=== PATIENT | male | born 1930 | race Caucasian/White ===

== ENCOUNTER 2018-02-25 10:03 | Emergency (ER) | payer MEDICARE, BC ==
--- NOTE | 2018-02-25 10:24 | ED ---
Hypertension - History of Current Complaint Chief Complaint: EDHypertension Stated Complaint: HIGH BP,LEG SWELLING - Allergies/Home Medications Allergies/Adverse Reactions: Allergies Allergy/AdvReac Type Severity Reaction Status Date / Time codeine Allergy Hives/Diff. Verified 02/25/18 10:12 Breathing/I tching PMH/Surg Hx/FS Hx/Imm Hx Previously Healthy: No Endocrine/Hematology History: Denies: Hx Anticoagulant Therapy, Hx Diabetes, Hx Thyroid Disease Cardiovascular History: Reports: Hx Coronary Artery Disease, Hx Hypercholesterolemia, Hx Hypertension, Hx Pacemaker/ICD - 2012, Other Cardiovascular Problems/Disorders - CARDIAC STENT Denies: Hx Angina, Hx Cardiac Arrest, Hx Congestive Heart Failure Respiratory History: Reports: Hx Sleep Apnea Denies: Other Respiratory Problems/Disorders GI History: Reports: Hx Gastroesophageal Reflux Disease Denies: Other GI Disorders History: Reports: Hx Benign Prostatic Hyperplasia Denies: Hx Renal Disease Musculoskeletal History: Reports: 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 RIGHT CATARACT, [place], [place], 2008. HERNIA X 2 1997, [place]. TONSILECTOMY 193, [facility] Anesthesia Reactions: No - Immunization History Date of Tetanus Vaccine: Unk Date of Influenza Vaccine: Fall 2014 Infectious Disease History: No Infectious Disease History: Denies: Traveled Outside the in Last 30 Days - Social History Alcohol Use: Rare Substance Use Type: Reports: None Smoking Status (MU): Never Smoked Tobacco Review of Systems Negative: Fever, Chills Negative: Erythema Negative: Sore Throat Negative: Chest Pain Negative: Shortness Of Breath, Cough Negative: Abdominal Pain, Vomiting, Nausea Negative: dysuria, hematuria Negative: Myalgia, Edema Negative: Rash Neurological: Other - No dizziness All Other Systems Reviewed And Are Negative: Yes Physical Exam - Summary Physical Exam Summary: Constitutional: Well-developed, Well-nourished, Alert. (-) Distressed Skin: Warm, Dry HENT: Normocephalic; Atraumatic Eyes: Conjunctiva normal Neck: Musculoskeletal ROM normal neck. (-) JVD, (-) Stridor, (-) Tracheal deviation Cardio: Rhythm regular, rate normal, Heart sounds normal; Intact distal pulses; The pedal pulses are 2+ and symmetric. Radial pulses are 2+ and symmetric. (-) Murmur Pulmonary/Chest wall: Effort normal. (-) Respiratory distress, (-) Wheezes, (-) Rales Abd: Soft, (-), epigastric tenderness, (-) Distension, (-) Guarding, (-) Rebound Musculoskeletal: (-) Edema Lymph: (-) Cervical adenopathy Neuro: Alert, Oriented x3 Psych: Mood and affect Normal Triage Information Reviewed: Yes Vital Signs On Initial Exam: Initial Vitals Temp Pulse Resp BP Pulse Ox 97.5 F 67 18 152/94 97 02/25/18 10:07 02/25/18 10:07 02/25/18 10:07 02/25/18 10:07 02/25/18 10:07 Vital Signs Reviewed: Yes Diagnostics - Vital Signs Vital Signs Temp Pulse Resp BP Pulse Ox 02/25/18 10:07 97.5 F 67 18 152/94 97 - Laboratory Lab Statement: Any lab studies that have been ordered have been reviewed, and results considered in the medical decision making process. Discharge - Discharge Plan Referrals: Abner Romero MD [Primary Care Provider] -
--- NOTE | 2018-02-25 10:59 | ED ---
Lower Extremity - HPI Summary HPI Summary: 87 y/o male presents to the ED c/o bilateral feet pain for 3 days now. Associated sx: redness and swelling in both feet. Sx not alleviated by anything. Pt has trouble walking due to weakness. Gained 10 lbs in last week, lost 4 lbs last night. PMHx AFIB. Denies CP. Reported recent BP in 130s-140s, occasionally 150s; HR 70's and high 60's - History of Current Complaint Chief Complaint: EDHypertension Stated Complaint: HIGH BP,LEG SWELLING Hx Obtained From: Patient Onset of Pain: Days Onset/Duration: Still Present Pain Intensity: 5 Timing: Constant Location: Is Discrete @ - bilateral feet Associated Signs And Symptoms: Positive: Swelling, Redness Alleviating Factor(s): Nothing - Allergies/Home Medications Allergies/Adverse Reactions: Allergies Allergy/AdvReac Type Severity Reaction Status Date / Time codeine Allergy Hives/Diff. Verified 02/25/18 10:12 Breathing/I tching Home Medications: Home Medications Aspirin EC TAB* [Ecotrin EC Low Dose 81 MG*] 81 mg PO QAM 02/25/18 [History Confirmed 02/25/18] Atorvastatin* [Lipitor 10 MG*] 5 mg PO EVERY OTHER DAY 02/25/18 [History Confirmed 02/25/18] Atorvastatin* [Lipitor 10 MG*] 10 mg PO EVERY OTHER DAY 02/25/18 [History Confirmed 02/25/18] Bilberry Fruit Extract [Bilberry Extract] 150 mg PO QAM 02/25/18 [History Confirmed 02/25/18] Cyanocobalamin TAB* [Vitamin B12 TAB*] 1,000 mcg PO DAILY 02/25/18 [History Confirmed 02/25/18] Dabigatran CAP(NF) [Pradaxa CAP(NF)] 150 mg PO BID 02/25/18 [History Confirmed 02/25/18] Digoxin TAB* [Lanoxin TAB*] 0.125 mg PO BID 02/25/18 [History Confirmed 02/25/18 ] Digoxin TAB* [Lanoxin TAB*] 0.125 mg PO DAILY 02/25/18 [History Confirmed ] Docusate CAP* [Colace Cap*] 100 mg PO QAM 02/25/18 [History Confirmed 02/25/18] Dorzolamide HCl/Timolol Maleat [Cosopt Eye Drops] 1 drop RIGHT EYE BID 02/25/18 [History Confirmed 02/25/18] Meclizine TAB* [Antivert 12.5 TAB*] 12.5 - 25 mg PO TID PRN 02/25/18 [History Confirmed 02/25/18] Pantoprazole TAB (NF) [Protonix TAB (NF)] 40 mg PO QAM 02/25/18 [History Confirmed 02/25/18] Tamsulosin CAP* [Flomax CAP*] 0.4 mg PO QAM 02/25/18 [History Confirmed 02/25/18 ] Vit A/Vit C/Vit E/Zinc/Copper [Preservision Areds Softgel] 1 each PO BID [History Confirmed 02/25/18] dilTIAZem HCl [Cartia Xt] 120 mg PO BID 02/25/18 [History Confirmed 02/25/18] PMH/Surg Hx/FS Hx/Imm Hx Previously Healthy: No Endocrine/Hematology History: Denies: Hx Anticoagulant Therapy, Hx Diabetes, Hx Thyroid Disease Cardiovascular History: Reports: Hx Coronary Artery Disease, Hx Hypercholesterolemia, Hx Hypertension, Hx Pacemaker/ICD - 2012, Other Cardiovascular Problems/Disorders - CARDIAC STENT Denies: Hx Angina, Hx Cardiac Arrest, Hx Congestive Heart Failure Respiratory History: Reports: Hx Sleep Apnea Denies: Other Respiratory Problems/Disorders GI History: Reports: Hx Gastroesophageal Reflux Disease Denies: Other GI Disorders History: Reports: Hx Benign Prostatic Hyperplasia Denies: Hx Renal Disease Musculoskeletal History: Reports: 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 [place]ACT, [place], [place], 2008. HERNIA X 2 1997, [facility] [place]. TONSILECTOMY 1935, [facility] Hx Anesthesia Reactions: No - Immunization History Date of Tetanus Vaccine: Unk Date of Influenza Vaccine: Fall 2014 Infectious Disease History: No Infectious Disease History: Denies: Traveled Outside the [place] in Last 30 Days - Social History Alcohol Use: None Substance Use Type: Reports: None Smoking Status (MU): Never Smoked Tobacco Review of Systems Negative: Fever, Chills Negative: Erythema Negative: Sore Throat Negative: Chest Pain Negative: Shortness Of Breath, Cough Negative: Abdominal Pain, Vomiting, Nausea Negative: dysuria, hematuria Positive: Edema, Other - bilateral feet pain. Negative: Myalgia Positive: Other - redness @ both legs. Negative: Rash Neurological: Other - No dizziness All Other Systems Reviewed And Are Negative: Yes Physical Exam - Summary Physical Exam Summary: Constitutional: Well-developed, Well-nourished, Alert. (-) Distressed Skin: Warm, Dry HENT: Normocephalic; Atraumatic Eyes: Conjunctiva normal Neck: Musculoskeletal ROM normal neck. (-) JVD, (-) Stridor, (-) Tracheal deviation Cardio: Irregular pulse. Heart sounds normal; Intact distal pulses; The pedal pulses are 2+ and symmetric. Radial pulses are 2+ and symmetric. (-) Murmur. Pulmonary/Chest wall: Effort normal. (-) Respiratory distress, (-) Wheezes, (-) Rales. Crackles at left lower lung field. Abd: Soft, (-), epigastric tenderness, (-) Distension, (-) Guarding, (-) Rebound Musculoskeletal: 1+ pitting edema @ both LE up to knee. Lymph: (-) Cervical adenopathy Neuro: Alert, Oriented x3 Psych: Mood and affect Normal Triage Information Reviewed: Yes Vital Signs On Initial Exam: Initial Vitals Temp Pulse Resp BP Pulse Ox 97.5 F 67 18 152/94 97 02/25/18 10:07 02/25/18 10:07 02/25/18 10:07 02/25/18 10:07 02/25/18 10:07 Vital Signs Reviewed: Yes Diagnostics - Vital Signs Vital Signs Temp Pulse Resp BP Pulse Ox 02/25/18 10:07 97.5 F 67 18 152/94 97 - Laboratory Result Diagrams: 02/25/18 11:12 02/25/18 11:12 Lab Statement: Any lab studies that have been ordered have been reviewed, and results considered in the medical decision making process. - Radiology CXR Xray Interpretation: Positive (See Comments) - 1. PATCHY CONSOLIDATION OF THE RIGHT MIDDLE LOBE WITH SMALL RIGHT PLEURAL EFFUSION. RECOMMEND FOLLOW-UP UNTIL RESOLUTION TO EXCLUDE UNDERLYING PULMONARY PARENCHYMAL PATHOLOGY. 2. COPD. 3. CARDIOMEGALY WITH A TORTUOUS AORTA Radiology Interpretation Completed By: Radiologist - EKG 1 EKG Interpretation: 11:05 - Paced @ 70 bpm. Lower Extremity Course/Dx - Course Assessment/Plan: No sign of pulmonary edema. XR showed infiltrated that we will treat. Difficulty ambulating not related to SOB but with leg pain and heaviness. - Diagnoses Provider Diagnoses: Peripheral edema, Lung infiltrate Discharge - Discharge Plan Condition: Stable Disposition: HOME Prescriptions: Furosemide TAB* [Lasix TAB*] 20 mg PO DAILY PRN #14 tab PRN Reason: Per Protocol Patient Education Materials: Leg Edema (ED), FAREED [place] ([place]) Referrals: Abner Romero MD [Primary Care Provider] - 2 Days (PLEASE F/U IN 1-2 DAYS) Additional Instructions: F/U WITH [facility] AND/OR [facility]CP IN 1-2 DAYS. CALL FOR AN APPOINTMENT RECOMMEND KNEE HIGH COMPRESSION STOCKINGS RETURN TO ED FOR RETURNING OR WORSENING SYMPTOMS
[2018-02-25] MEDS ORDERED: Furosemide IV* 10 MG/ML VIAL (40 MG) IV SLOW PU ONE (11:02)
[2018-02-25 11:23] LABS: Hematocrit 40 % (42-52); Hemoglobin 13.3 g/dl (14.0-18.0); Mean Corpuscular HGB Conc 34 g/dl (31-36); Mean Corpuscular Hemoglobin 34 pg (27-31); Mean Corpuscular Volume 101 fL (80-94); Mean Platelet Volume 8.2 um3 (7.4-10.4); Platelet Count 132 10^3/ul (150-450); Red Blood Count 3.92 10^6/ul (4.00-5.40); Red Cell Distribution Width 13 % (10.5-15); White Blood Count 6.4 10^3/ul (3.5-10.8)
[2018-02-25 11:40] LABS: EGFR Non-African American 71.7 (>60)
--- NOTE | 2018-02-25 12:01 | RAD ---
HISTORY: EDEMA, L[facility] CRACKLE COMPARISONS: August 19, 2015 VIEWS: 4: Frontal dual-energy and lateral views of the chest. FINDINGS: CARDIOMEDIASTINAL SILHOUETTE: The aorta is tortuous. A prosthetic heart valve is noted. The cardiac silhouette is mildly enlarged. The cardiomediastinal silhouette is stable from previous examinations.. ABNER: The abner are normal. PLEURA: There is a small right pleural effusion. LUNG PARENCHYMA: There is hyperinflation with flattening of the diaphragm and expansion of the AP diameter of the chest. There is patchy alveolar opacification of the right lung base localizing to the right middle lobe. ABDOMEN: The upper abdomen is clear. There is no subphrenic gas. BONES AND SOFT TISSUES: The patient is status post median sternotomy. OTHER: A left-sided pacemaker is noted. IMPRESSION: 1. PATCHY CONSOLIDATION OF THE RIGHT MIDDLE LOBE WITH SMALL RIGHT PLEURAL EFFUSION. RECOMMEND FOLLOW-UP UNTIL RESOLUTION TO EXCLUDE UNDERLYING PULMONARY PARENCHYMAL PATHOLOGY. 2. COPD. 3. CARDIOMEGALY WITH A TORTUOUS AORTA
[2018-02-25] MEDS ORDERED: Azithromycin TAB* 250 MG PO ONE (13:14)
[2018-02-25 13:48] VITALS: BP 130/100
== END 2018-02-25 13:54 | disposition home or self-care (01) ==
LOC: ED 10:03
DX: R60.0 Localized edema (principal); R91.8 Other nonspecific abnormal finding of lung field; I48.91 Unspecified atrial fibrillation; I25.10 Atherosclerotic heart disease of native coronary artery without angina pectoris; I10 Essential (primary) hypertension; Z95.5 Presence of coronary angioplasty implant and graft; Z79.899 Other long term (current) drug therapy; Z79.01 Long term (current) use of anticoagulants; Z88.5 Allergy status to narcotic agent
CPT/HCPCS: 36415; 71046; 80053; 80061; 80162; 82550; 83880; 85027; 93005; 96374; 99283; A9270-GY; J1940

== ENCOUNTER → 2019-02-11 17:45 | Emergency (ER) | payer MEDICARE, BC ==
[2019-02-11 19:17] LABS: ABS Eosinophils 0.6 10^3/ul (0-0.6); ABS Lymphocytes 2.1 10^3/ul (1.0-4.8); ABS Neutrophils 3.8 10^3/ul (1.5-7.7); Eosinophil % 7.6 %; Hematocrit 39 % (42-52); Hemoglobin 13.3 g/dL (14.0-18.0); Lymphocyte % 28.3 %; Mean Corpuscular HGB Conc 34 g/dL (31-36); Mean Corpuscular Hemoglobin 34 pg (27-31); Mean Corpuscular Volume 102 fL (80-94); Mean Platelet Volume 8.6 fL (7.4-10.4); Nucleated Red Blood Cells % 0.1; Platelet Count 126 10^3/uL (150-450); Red Blood Count 3.87 10^6 /uL (4.18-5.48); Red Cell Distribution Width 14 % (10-15); White Blood Count 7.4 10^3/uL (3.5-10.8)
[2019-02-11 19:21] LABS: INR 1.4 (0.82-1.09)
[2019-02-11 19:32] LABS: Albumin 3.7 g/dL (3.2-5.2); Albumin/Globulin Ratio 1.5 (1-3); BUN/Creatinine Ratio 27.3 (8-20); C Reactive Protein 9.6 mg/L (<8.01); EGFR African American 64.3 (>60); EGFR Non-African American 53.2 (>60); Globulin 2.5 g/dL (2-4); Potassium 4.2 mmol/L (3.5-5.0); Total Bilirubin 0.6 mg/dL (0.2-1.0); Total Protein 6.2 g/dL (6.4-8.9)
[2019-02-11 19:33] LABS: Troponin I 0.02 ng/mL (<0.04)
--- NOTE | 2019-02-11 19:43 | ED ---
Adult Trauma - HPI Summary HPI Summary: This pt is an 88 y/o male presenting to [facility] via EMS c/o right hip pain s/p fall today. Pt reports he went outside to get fresh air and sat down on a chair. He notes his chair went backwards and he fell backwards striking the back of his head. No LOC. Son, who lives right next door, states he saw the pt on the ground and was probably there for about 30 minutes. Son was unable to get the pt to stand up. Denies chest pain, SOB, abd pain. At baseline pt ambulates with a cane but slow. Pt is on anticoagulants. 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 - History of Current Complaint Chief Complaint: EDFall Stated Complaint: FALL PER EMS Time Seen by Provider: 02/11/19 19:30 Hx Obtained From: Patient, Family/Property Assessment Monitor - Son Mechanism of Injury: Fall Ambulatory at the Scene: No Loss of Consciousness: no loss of consciousness Onset/Duration: Started Hours Ago, Still Present Onset of Pain: Hours Current Severity: Moderate Pain Intensity: 4 Pain Scale Used: 0-10 Numeric Location: Other - Right hip Aggravating Factor(s): Ambulation Alleviating Factor(s): Rest Associated Signs & Symptoms: Negative: SOB, Chest Pain, Abdominal Pain, Fever, Loss of Consciousness - Additional Pertinent History Primary Care Physician: [id number] - Allergy/Home Medications Allergies/Adverse Reactions: Allergies Allergy/AdvReac Type Severity Reaction Status Date / Time codeine Allergy Hives/Diff. Verified 02/25/18 10:12 Breathing/I tching PMH/Surg Hx/FS Hx/Imm Hx Endocrine/Hematology History: Denies: Hx Anticoagulant Therapy, Hx Diabetes, Hx Thyroid Disease Cardiovascular History: Reports: Hx Coronary Artery Disease, Hx Hypercholesterolemia, Hx Hypertension, Hx Pacemaker/ICD - 2012, Other Cardiovascular Problems/Disorders - CARDIAC STENT Denies: Hx Angina, Hx Cardiac Arrest, Hx Congestive Heart Failure Respiratory History: Reports: Hx Chronic Obstructive Pulmonary Disease (COPD), Hx Sleep Apnea Denies: Other Respiratory Problems/Disorders GI History: Reports: Hx Gastroesophageal Reflux Disease Denies: Other GI Disorders History: Reports: Hx Benign Prostatic Hyperplasia Denies: Hx Renal Disease Musculoskeletal History: Reports: 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 RIGHT CATARACT, [place], [place], 2008. HERNIA X 2 1997, [facility] [place]. TONSILECTOMY 193, [place] Hx Anesthesia Reactions: No - Immunization History Date of Tetanus Vaccine: Unk Date of Influenza Vaccine: Fall 2014 Infectious Disease History: No Infectious Disease History: Denies: Traveled Outside the [place] in Last 30 Days - Family History Family History: Mother with glaucoma. Father with lung CA secondary to smoking - Social History Alcohol Use: None Substance Use Type: Reports: None Smoking Status (MU): Never Smoked Tobacco Review of Systems Negative: Fever Negative: Chest Pain Negative: Shortness Of Breath Negative: Abdominal Pain Musculoskeletal: Other - POSITIVE: right hip pain Neurological: Other - NEGATIVE: LOC All Other Systems Reviewed And Are Negative: Yes Physical Exam - Summary Physical Exam Summary: VITAL SIGNS: Reviewed. GENERAL: Patient is a well-developed and nourished male who is lying comfortable in the stretcher. Patient is not in any acute respiratory distress. HEAD AND FACE: No signs of trauma. No ecchymosis, hematomas or skull depressions. No sinus tenderness. EYES: PERRLA, EOMI x 1, No injected conjunctiva, no nystagmus. Patient is blind in the left eye, left eye is opaque in exam. EARS: Hearing grossly intact. Ear canals and tympanic membranes are within normal limits. MOUTH: Oropharynx within normal limits. NECK: Supple, trachea is midline, no adenopathy, no JVD, no carotid bruit, no c- spine tenderness, neck with full ROM. CHEST: Symmetric, no tenderness at palpation LUNGS: Clear to auscultation bilaterally. No wheezing or crackles. CVS: Regular rate and rhythm, S1 and S2 present, no murmurs or gallops appreciated. ABDOMEN: Soft, non-tender. No signs of distention. No rebound no guarding, and no masses palpated. Bowel sounds are normal. EXTREMITIES: Pain in the right hip with movement. NEURO: Alert and oriented x 3. No acute neurological deficits. Speech is normal and follows commands. SKIN: Dry and warm GCS: 15 Triage Information Reviewed: Yes Vital Signs On Initial Exam: Initial Vitals Temp Pulse Resp BP Pulse Ox 99.4 F 79 18 141/83 94 02/11/19 18:19 02/11/19 18:19 02/11/19 18:19 02/11/19 18:19 02/11/19 18:19 Vital Signs Reviewed: Yes Diagnostics - Vital Signs Vital Signs Temp Pulse Resp BP Pulse Ox 02/11/19 18:19 99.4 F 79 18 141/83 94 - Laboratory Lab Results: Lab Results 02/11/19 02/11/19 02/11/19 Range/Units 19:07 19:07 19:07 WBC 7.4 (3.5-10.8) 10^3/uL RBC 3.87 L (4.18-5.48) 10^6 /uL Hgb 13.3 L (14.0-18.0) g/dL Hct 39 L (42-52) % MCV 102 H (80-94) fL MCH 34 H (27-31) pg MCHC 34 (31-36) g/dL RDW 14 (10-15) % Plt Count 126 L (150-450) 10^3/uL MPV 8.6 (7.4-10.4) fL Neut % (Auto) 50.6 % Lymph % (Auto) 28.3 % Will % (Auto) 13.0 % Eos % (Auto) 7.6 % Baso % (Auto) 0.5 % Absolute Neuts (auto) 3.8 (1.5-7.7) 10^3/ul Absolute Lymphs (auto) 2.1 (1.0-4.8) 10^3/ul Absolute Monos (auto) 1.0 H (0-0.8) 10^3/ul Absolute Eos (auto) 0.6 (0-0.6) 10^3/ul Absolute Basos (auto) 0.0 (0-0.2) 10^3/ul Absolute Nucleated RBC 0.0 10^3/ul Nucleated RBC % 0.1 INR (Anticoag Therapy) 1.40 H (0.82-1.09) Sodium (135-145) mmol/L Potassium (3.5-5.0) mmol/L Chloride (101-111) mmol/L Carbon Dioxide (22-32) mmol/L Anion Gap (2-11) mmol/L BUN (6-24) mg/dL Creatinine (0.67-1.17) mg/dL Est GFR ( Amer) (>60) Est GFR (Non-Af Amer) (>60) BUN/Creatinine Ratio (8-20) Glucose (70-100) mg/dL Lactic Acid 0.6 (0.5-2.0) mmol/L Calcium (8.6-10.3) mg/dL Total Bilirubin (0.2-1.0) mg/dL AST (13-39) U/L ALT (7-52) U/L Alkaline Phosphatase (34-104) U/L Troponin I (<0.04) ng/mL C-Reactive Protein (<8.01) mg/L Total Protein (6.4-8.9) g/dL Albumin (3.2-5.2) g/dL Globulin (2-4) g/dL Albumin/Globulin Ratio (1-3) 02/11/ Range/Units 19:07 WBC (3.5-10.8) 10^3/uL RBC (4.18-5.48) 10^6 /uL Hgb (14.0-18.0) g/dL Hct (42-52) % MCV (80-94) fL MCH (27-31) pg MCHC (31-36) g/dL RDW (10-15) % Plt Count (150-450) 10^3/uL MPV (7.4-10.4) fL Neut % (Auto) % Lymph % (Auto) % Will % (Auto) % Eos % (Auto) % Baso % (Auto) % Absolute Neuts (auto) (1.5-7.7) 10^3/ul Absolute Lymphs (auto) (1.0-4.8) 10^3/ul Absolute Monos (auto) (0-0.8) 10^3/ul Absolute Eos (auto) (0-0.6) 10^3/ul Absolute Basos (auto) (0-0.2) 10^3/ul Absolute Nucleated RBC 10^3/ul Nucleated RBC % INR (Anticoag Therapy) (0.82-1.09) Sodium 140 (135-145) mmol/L Potassium 4.2 (3.5-5.0) mmol/L Chloride 108 (101-111) mmol/L Carbon Dioxide 29 (22-32) mmol/L Anion Gap 3 (2-11) mmol/L BUN 35 H (6-24) mg/dL Creatinine 1.28 H (0.67-1.17) mg/dL Est GFR ( Amer) 64.3 (>60) Est GFR (Non-Af Amer) 53.2 (>60) BUN/Creatinine Ratio 27.3 H (8-20) Glucose 106 H (70-100) mg/dL Lactic Acid (0.5-2.0) mmol/L Calcium 9.0 (8.6-10.3) mg/dL Total Bilirubin 0.60 (0.2-1.0) mg/dL AST 17 (13-39) U/L ALT 18 (7-52) U/L Alkaline Phosphatase 55 (34-104) U/L Troponin I 0.02 (<0.04) ng/mL C-Reactive Protein 9.60 H (<8.01) mg/L Total Protein 6.2 L (6.4-8.9) g/dL Albumin 3.7 (3.2-5.2) g/dL Globulin 2.5 (2-4) g/dL Albumin/Globulin Ratio 1.5 (1-3) Result Diagrams: 02/11/19 19:07 02/11/19 19:07 Lab Statement: Any lab studies that have been ordered have been reviewed, and results considered in the medical decision making process. - Radiology Chest XR Radiology Interpretation Completed By: ED Physician Summary of Radiographic Findings: Hyperinflation, COPD, no acute process. Pending official radiology report. Right hip XR Radiology Interpretation Completed By: ED Physician Summary of Radiographic Findings: Severe arthritis of the right hip joint. No definite fracture seen. Pending official radiology report. - CT Brain CT CT Interpretation Completed By: Radiologist Summary of CT Findings: IMPRESSION: No acute intracranial hemorrhage. No mass or obstructive hydrocephalus. Dr. Fatima has reviewed this report. Cervical spine CT CT Interpretation Completed By: Radiologist Summary of CT Findings: IMPRESSION: 1. No acute fracture involving the cervical vertebral bodies or posterior elements. 2. Slight anterolisthesis of C3 onto C4 and C4 onto C5 secondary to degenerative changes of the facet joints and discs bases. 3. 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 No significant central canal stenosis. Variable degrees of neural foraminal narrowing secondary to degenerative changes of the uncovertebral joints and facet joints. 4. Dermal inclusion cyst in the posterior aspect of the right shoulder. Dr. Fatima has reviewed this report. Pelvis CT CT Interpretation Completed By: Radiologist Summary of CT Findings: IMPRESSION: 1. No evidence of a fracture involving the hips. Osteoarthritis changes of the hips. The appearance of the pelvis is intact. 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 2. 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 Maximum AP length is 3.6 cm. Workup and followup per institutional guidelines. Consider ultrasound examination of the abdominal aorta. Dr. Ftaima has reviewed this report. Adult Trauma Course/Dx - Course Assessment/Plan: Pt is an 88 y/o male presenting to [facility] via EMS c/o right hip pain s/p fall today. Pt reports he went outside to get fresh air and sat down on a chair. He notes his chair went backwards and he fell backwards striking the back of his head. No LOC. Pt is on anticoagulants. Lab work was obtained. Right hip XR shows severe arthritis of the right hip joint. No definite fracture seen. Brain CT is negative. Cervical spine CT shows 1. No acute fracture involving the cervical vertebral bodies or posterior elements. 2. Slight anterolisthesis of C3 onto C4 and C4 onto C5 secondary to degenerative changes of the facet joints and discs bases. 3. 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 No significant central canal stenosis. Variable degrees of neural foraminal narrowing secondary to degenerative changes of the uncovertebral joints and facet joints. 4. Dermal inclusion cyst in the posterior aspect of the right shoulder. Pelvis CT shows 1. No evidence of a fracture involving the hips. Osteoarthritis changes of the hips. The appearance of the pelvis is intact. 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 2. 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 Maximum AP length is 3.6 cm. Workup and followup per institutional guidelines. Consider ultrasound examination of the abdominal aorta. Pt will be discharged home with follow up from her PCP. He was given a prescription for Tramadol. Instructions to return to the ED were given to the pt. - Diagnoses Provider Diagnoses: Arthritis of right hip, Fall Discharge - Sign-Out/Discharge Documenting (check all that apply): Patient Departure - Discharged home Patient Received Moderate/Deep Sedation with Procedure: No - Discharge Plan Condition: Stable Disposition: HOME Prescriptions: Tramadol HCl [Ultram] 50 mg PO Q6HR PRN #20 tablet MDD 4 PRN Reason: Pain Patient Education Materials: Fall Prevention for Older Adults (ED), Arthritis ( ED) Referrals: Abner Romero MD [Primary Care Provider] - Additional Instructions: Please follow up with your primary care provider in 1-2 days. RETURN TO EMERGENCY DEPARTMENT FOR ANY NEW OR WORSENING SYMPTOMS. - Attestation Statements Document Initiated by Scribe: Yes Documenting Scribe: Laura Franklin Provider For Whom Markosibmaycol is Documenting (Include Credential): Smooth Fatima MD Scribe Attestation: Laura Beltran, scribed for Smooth Fatima MD on 02/11/19 at 2308. Status of Scribe Document: Ready
[2019-02-11 22:34] VITALS: BP 156/109
== END | disposition home or self-care (01) ==
LOC: ED 17:45
DX: M16.11 Unilateral primary osteoarthritis, right hip (principal); W07.XXXA Fall from chair, initial encounter; I25.10 Atherosclerotic heart disease of native coronary artery without angina pectoris; I10 Essential (primary) hypertension; J44.9 Chronic obstructive pulmonary disease, unspecified
CPT/HCPCS: 36415; 70450; 71046; 72125; 72192; 80053; 83605; 84484; 85025; 85610; 86140; 93005; 99283

== ENCOUNTER 2019-05-15 23:38 | Inpatient (IN) | payer MEDICARE, BC ==
--- OUTSIDE RECORDS SUMMARY | 2019-05-16 00:10 | XMS REPORT | Continuity of Care Document ---
:1930 External Reference #:[id number] Author Name Rafy Freeman Care Team Providers Name Role Phone Abner Romero M.D. - Family Medicine Care Team Information Acid Retort Operator [phone] Enzo Victoria MD - Care Team Information Acid Retort Operator [phone] Otolaryngology Problems Active Problems Provider Date Paroxysmal supraventricular tachycardia Rigo Burrell M.D. Onset: 12/28 Coronary arteriosclerosis Rigo Burrell M.D. Onset: 12/29/2011 Aortic valve disorder Rigo Burrell M.D. Onset: 12/29/2011 Sinus node dysfunction Rigo Burrell M.D. Onset: 12/29/2011 Benign essential hypertension Melissa Walters N.P. Onset: 03/01/2012 Dizziness and giddiness Rigo Burrell M.D. Onset: 06/04/2012 Atrial fibrillation Rigo Burrell M.D. Onset: 12/06/2012 Rheumatic aortic stenosis TAYLOR Vasquez Onset: 11/09/2013 Social History Type Date Description Comments Sex Unknown Tobacco Use Start: Unknown Never Smoked Cigarettes ETOH Use Denies alcohol use Tobacco Use Start: Unknown Patient has never smoked Recreational Drug Use Denies Drug Use Tobacco Use Start: Unknown Secondhand smoke exposure As a child Smoking Status Reviewed: 01/11/19 Secondhand smoke exposure As a child Exercise Type/Frequency Does not exercise Allergies, Adverse Reactions, Alerts Active Allergies Reaction Severity Comments Date Codeine 03/11/2005 Medications Active Medications SIG Qnty Indications Ordering Date Provider Torsemide 1 by mouth 2 30tabs R60.9 Shayna Lloyd, 03/09/2018 10mg days/week N.P. Tablets Lipitor 1/2 alt with 1 tab 90tabs Shayna Lloyd, 09/01/2017 10mg Tablets by mouth every N.P. other day Diltiazem CD 1 by mouth twice 180caps Shayna Lloyd, 11/05/2016 120mg daily N.P. Caps ER 24HR Pradaxa take one capsule 180caps I48.0 Rigo Mathews 11/02/2015 150mg by mouth twice a Denita Burrell Capsules day Amoxicillin take 4 tabs 1 hour 4tabs Rigo Mathews 08/29/2015 500mg prior to dental Denita Burrell Tablets procedure/appointm ent. Digoxin m-w-f 1 tab twice 110tabs Rigo Mathews 03/07/2014 125mcg a day Denita Burrell Tablets tu//sat/sun 1 tab daily Preservision 1 po twice daily 100tabs Rigo Mathews 09/29/2005 Tablets -eye vitamin and Denita Burrell mineral supplement Flovent Diskus 2 puffs inhaled Unknown daily 250mcg/Blist Aerosol Meclizine HCL 1 by mouth three Unknown 12.5mg times a day as Tablets needed Cosopt 1 drop in right Unknown 22.3-6.8mg/ml eye twice daily Solution Bilberry 1 capsule po daily Unknown Capsules Ventolin HFA 2 puffs every Unknown 4hours prn Tylenol Extra as needed Unknown Strength Aspirin Adult Low 1 tablet daily Unknown Dose 81mg Pantoprazole Sodium 1 po qd 100tabs Unknown 40mg Tablets DR Vitamin B-12 1 po qd 90tabs Unknown 1000mcg Tablets Flomax 1 po qd Other Ordering 0.4mg Capsules Provider Immunizations Description No Information Available Vital Signs Date Vital Result Comment 01/11/2019 11:17am Height 71 inches 5'11" Weight 214.00 lb with shoes Heart Rate 74 /min BP Systolic Sitting 124 mmHg lue reg cuff BP Diastolic Sitting 80 mmHg lue reg cuff BP Systolic Standing 128 mmHg lue reg cuff BP Diastolic Standing 80 mmHg lue reg cuff Respiratory Rate 18 /min BMI (Body Mass Index) 29.8 kg/m2 Ejection Fraction 60-65% echo. 05/03/18 11/10/2018 2:17pm Height 71 inches 5'11" Weight 216.38 lb Heart Rate 78 /min BP Systolic Sitting 124 mmHg Lue large cuff BP Diastolic Sitting 84 mmHg Lue large cuff Respiratory Rate 24 /min O2 % BldC Oximetry 96 % On Ra BMI (Body Mass Index) 30.2 kg/m2 Neck Circumference in inches 17.25 Results Test Date Facility Test Result H/L Range Note Comp Metabolic 10/21/2018 [facility] Sodium 143 mmol/L Normal 135-145 [address] [place] [address] [phone] Potassium 4.8 mmol/L Normal 3.5-5.0 Chloride 109 mmol/L Normal 101-111 Co2 Carbon Dioxide 31 mmol/L Normal 22-32 Anion Gap 3 mmol/L Normal 2-11 Glucose 89 mg/dL Normal 70-100 Blood Urea Nitrogen 27 mg/dL High 6-24 Creatinine 1.07 mg/dL Normal 0.67-1.17 BUN/Creatinine Ratio 25.2 High 8-20 Calcium 8.7 mg/dL Normal 8.6-10.3 Total Protein 6.3 g/dL Low 6.4-8.9 Albumin 4.1 g/dL Normal 3.2-5.2 Globulin 2.2 g/dL Normal 2-4 Albumin/Globulin Ratio 1.9 Normal 1-3 Total Bilirubin 0.60 mg/dL Normal 0.2-1.0 Alkaline Phosphatase 63 U/L Normal 34-104 Alt 19 U/L Normal 7-52 Ast 19 U/L Normal 13-39 Egfr Non- 65.4 >60 Egfr 79.1 >60 1 Lipid Profile 10/21/2018 [facility] Triglycerides 50 mg/dL 2 (Trig/Chol/HDL) [address] [place] [address] [phone] Cholesterol 126 mg/dL 3 HDL Cholesterol 44.0 mg/dL 4 LDL Cholesterol 72 mg/dL 5 Laboratory test 10/21/2018 [facility] Magnesium 2.2 mg/dL Normal 1.9-2.7 6 finding [address] [place] [address] [phone] Creatine Kinase(CK) 105 U/L Normal 10-223 7 Digoxin 1.0 ng/ml Normal 0.8-2.0 8 CBC Auto 10/21/2018 [facility] White Blood 5.2 10^3/uL Normal 3.5-10.[address] [place] [address] [phone] Red Blood Count 4.18 10^6/uL Normal 4.00-5.40 Hemoglobin 13.9 g/dL Low 14.0-18.0 Hematocrit 43 % Normal 42-52 Mean Corpuscular Volume 103 fL High 80-94 Mean Corpuscular Hemoglobin 33 pg High 27-31 Mean Corpuscular HGB Conc 32 g/dL Normal 31-36 Red Cell Distribution Width 15 % Normal 10.5-15 Platelet Count 133 10^3/uL Low 150-450 Mean Platelet Volume 9.5 fL Normal 7.4-10.4 Abs Neutrophils 2.1 10^3/uL Normal 1.5-7.7 Abs Lymphocytes 2.0 10^3/uL Normal 1.0-4.8 Abs Monocytes 0.8 10^3/uL Normal 0-0.8 Abs Eosinophils 0.4 10^3/uL Normal 0-0.6 Abs Basophils 0 10^3/uL Normal 0-0.2 Abs Nucleated RBC 0 10^3/uL Granulocyte % 39.3 % Lymphocyte % 37.7 % Monocyte % 14.5 % Eosinophil % 7.8 % Basophil % 0.7 % Nucleated Red Blood Cells % 0 Laboratory test 10/21/2018 [facility] B-Type 218 pg/mL High <= 100 [address] [place] [address] Peptide BNP [phone] 1 Because ethnic data is not always readily available, this report includes an eGFR for both -Americans and non- Americans. The National Kidney Disease Education Program (NKDEP) does not endorse the use of the MDRD equation for patients that are not between the ages of 18 and 70, are , have extremes of body size, muscle mass, or nutritional status, or are non- or non-. According to the National Kidney Foundation, irrespective of diagnosis, the stage of the disease is based on the level of kidney function: Stage Description GFR(mL/min/1.73 m(2)) 1 Kidney damage with normal or decreased GFR 90 2 Kidney damage with mild decrease in GFR 60-89 3 Moderate decrease in GFR 30-59 4 Severe decrease in GFR 15-29 5 Kidney failure <15 (or dialysis) 2 Desirable: <150 Borderline High: 150-199 High: 200-499 Very High: >500 3 Desirable: <200 Borderline High: 200-239 High: >239 4 Low: <40 Desirable: 40-60 High: >60 5 Desirable: <100 Near Optimal: 100-129 Borderline High: 130-159 High: 160-189 Very High: >189 6 FASTING 12 HOUR Copy Result to: RIGO BURRELL ([id number]) 7 FASTING 12 HOUR Copy Result to: RIGO BURRELL ([id number]) 8 FASTING 12 HOUR Copy Result to: RIGO BURRELL ([id number]) 9 FASTING 12 HOUR Copy Result to: RIGO BURRELL ([id number]) Procedures Date Code Description Status 01/11/2019 98104 Pace Maker Eval W/Iterative Adjment Dual Lead Completed 01/11/2019 51750 Pace Maker Eval W/Iterative Adjment Dual Lead Completed Medical Devices Description No Information Available Encounters Type Date Location Provider Dx Diagnosis Office Visit 01/11/2019 [facility] Shayna Lloyd, I50.32 Chronic diastolic 11:30a Of [place] N.P. (congestive) heart failure I49.5 Sick sinus syndrome Z95.0 Presence of cardiac pacemaker I10 Essential (primary) hypertension I48.2 Chronic atrial fibrillation R06.00 Dyspnea, unspecified I71.2 Thoracic aortic aneurysm, without rupture Office Visit 11/10/2018 2:[facility]p [facility] And Andi Vigil, J44.9 Chronic Sleep Services Of obstructive [place] pulmonary disease, unspecified G47.33 Obstructive sleep apnea (adult) (pediatric) Assessments Date Code Description Provider 01/11/2019 I49.5 Sick sinus syndrome Ica Pacer Schedule 01/11/2019 Z95.0 Presence of cardiac pacemaker Rigo Burrell M.D. 01/11/2019 I50.32 Chronic diastolic (congestive) heart Shayna Lloyd N.P. failure 01/11/2019 I49.5 Sick sinus syndrome Lani Muñoz.P. 01/11/2019 Z95.0 Presence of cardiac pacemaker Ica Pacer Schedule 01/11/2019 Z95.0 Presence of cardiac pacemaker Shayna Lloyd, N.P. 01/11/2019 I10 Essential (primary) hypertension Shayna Lloyd, N.P. 01/11/2019 I48.2 Chronic atrial fibrillation Ica Pacer Schedule 01/11/2019 I48.2 Chronic atrial fibrillation Shayna Lloyd, N.P. 01/11/2019 R06.00 Dyspnea, unspecified Shayna Lloyd, N.P. 01/11/2019 I71.2 Thoracic aortic aneurysm, without rupture Shayna Lloyd, N.P. 11/10/2018 J44.9 Chronic obstructive pulmonary disease, Andi Vigil MD unspecified 11/10/2018 G47.33 Obstructive sleep apnea (adult) Andi Vigil MD (pediatric) Plan of Treatment 01/11/2019 - Shayna Lloyd, N.P.I50.32 Chronic diastolic (congestive) heart failureFollow up:OV JFM 3moRecommendations:Continue to check weights. If weights fluctuate more than 3-4 lbs let us know. You may need more torsemide. ok to take an extra dose of torsemide after having salty meal. Continue to take BPs 1-2hr after medication. Call if BPs consistently > 140/90.I49.5 Sick sinus ecfqbmscC39.0 Presence of cardiac [id number] Essential (primary) msgvamrovlptL12.2 Chronic atrial fibrillationComments:Continue cardizem for rate control.Continue pradaxa to prevent stroke.R06.00 Dyspnea, pcostvcqyiqP52.2 Thoracic aortic aneurysm, without rupture Functional Status Description No Information Available Mental Status Description No Information Available Referrals Description No Information Available
--- OUTSIDE RECORDS SUMMARY | 2019-05-16 00:10 | XMS REPORT | Continuity of Care Document ---
:1930 External Reference #:[id number] Author Name Rigo Burrell M.D. (transmitted by agent of provider Camila Huerta) Address [address] [facility] [address] [place] [address] Care Team Providers Name Role Phone Abner Romero M.D. - Family Medicine Care Team Information [employer] Prescription Clerk Enzo Victoria MD - Care Team Information [employer] Prescription Clerk [phone] Otolaryngology Problems Active Problems Provider Date Paroxysmal supraventricular tachycardia Rigo Burrell M.D. Onset: 12/28 Coronary arteriosclerosis Rigo Burrell M.D. Onset: 12/29/2011 Aortic valve disorder Rigo Burrell M.D. Onset: 12/29/2011 Sinus node dysfunction Rigo Burrell M.D. Onset: 12/29/2011 Benign essential hypertension Melissa Walters N.Kay Onset: 03/01/2012 Dizziness and giddiness Rigo Burrell [...] exposure As a child Smoking Status Reviewed: 04/21/19 Secondhand smoke exposure As a child Exercise Type/Frequency Does not exercise Allergies, Adverse Reactions, Alerts Active Allergies Reaction Severity Comments Date Codeine 03/11/2005 Medications Active Medications SIG Qnty Indications Ordering Date Provider Torsemide 1 by mouth 2 30tabs R60.9 Shayna Lloyd, 03/09/2018 10mg Tablets days/week N.P. Lipitor 1/2 alt with 1 tab 90tabs Shayna Lloyd, 09/01/2017 10mg Tablets by mouth every N.P. other day Diltiazem CD 1 by mouth twice 180caps Shayna Lloyd, 11/05/2016 120mg Caps daily N.P. ER 24HR Pradaxa take one capsule 180caps I48.0 Rigo Mathews 11/02/2015 150mg Capsules by mouth twice a Denita Burrell day Amoxicillin take 4 tabs 1 hour 4tabs Rigo Mathews 08/29/2015 500mg prior to dental Denita Burrell Tablets procedure/appointm ent. Digoxin m-w-f 1 tab twice 110tabs Rigo Mathews 03/07/2014 125mcg Tablets a day Denita Burrell tu//sat/sun 1 tab daily Preservision 1 po twice daily 100tabs Rigo Mathews 09/29/2005 Tablets -eye vitamin and Denita Burrell mineral supplement Systane 1 drop Right eye Unknown 0.4-0.3% as needed Solution Triamcinolone applied to skin as Stefanie Slater PA Acetonide needed 0.1% Cream Qnasl 2 sprays each Abner Romero, 80mcg/Act Aerosol nostril daily M.DEnrique Flovent Diskus 2 puffs inhaled Unknown daily 250mcg/Blist Aerosol Meclizine HCL 1 by mouth three Unknown 12.5mg times a day as Tablets needed Cosopt 1 drop in right Unknown 22.3-6.8mg/ml eye twice daily Solution Bilberry 1 capsule po daily Unknown 100mg Capsules Ventolin HFA 2 puffs every Unknown 4hours prn Tylenol Extra 2 tablet po as Unknown Strength needed 500mg Tablets Aspirin Adult Low 1 tablet daily Unknown Dose 81mg Pantoprazole Sodium 1 po qd 100tabs Unknown 40mg Tablets Vitamin B-12 1 po qd 90tabs Unknown 1000mcg Tablets Immunizations Description No Information Available Vital Signs Date Vital Result Comment 04/21/2019 1:13pm Height 71 inches 5'11" Weight 221.00 lb with shoes Heart Rate 70 /min BP Systolic Sitting 140 mmHg Rue lg cuff BP Diastolic Sitting 96 mmHg Rue lg cuff BP Systolic Standing 130 mmHg Rue lg cuff BP Diastolic Standing 70 mmHg Rue lg cuff BP Systolic Lying Down 122 mmHg la repeat sitting BP Diastolic Lying Down 78 mmHg la repeat sitting Respiratory Rate 16 /min BMI (Body Mass Index) 30.8 kg/m2 Ejection Fraction 60-65% date 05/03/18 ECHO 01/11/2019 11:17am Height 71 inches 5'11" Weight 214.00 lb with shoes Heart Rate 74 /min BP Systolic Sitting 124 mmHg lue reg cuff BP Diastolic Sitting 80 mmHg lue reg cuff BP Systolic Standing 128 mmHg lue reg cuff BP Diastolic Standing 80 mmHg lue reg cuff Respiratory Rate 18 /min BMI (Body Mass Index) 29.8 kg/m2 Ejection Fraction 60-65% echo. 05/03/18 Results Test Date Facility Test Result H/L Range Note Comp Metabolic 10/21/2018 [facility] Sodium 143 mmol/L Normal 135-145 Panel [address] [place] [address] [phone] Potassium 4.8 mmol/L Normal 3.5-5.0 Chloride 109 [...] Egfr 79.1 >60 1 Lipid Profile 10/21/2018 [facility] Triglycerides 50 mg/dL 2 (Trig/Chol/HDL) [address] [place] [address] [phone] Cholesterol 126 mg/dL 3 HDL Cholesterol 44.0 mg/dL 4 LDL Cholesterol 72 mg/dL 5 Laboratory test 10/21/2018 [facility] Magnesium 2.2 mg/dL Normal 1.9-2.[address] [place] [address] [phone] Creatine Kinase(CK) 105 U/L Normal 10-223 7 Digoxin 1.0 ng/ml Normal 0.8-2.0 8 CBC Auto 10/21/2018 [facility] White Blood 5.2 10^3/uL Normal 3.5-10.[address] [place] [address] [phone] Red Blood Count 4.18 10^6/uL Normal 4.00-5.40 [...] Blood Cells % 0 Laboratory test 10/21/2018 [facility] B-Type 218 pg/mL High <= 100 [address] [place] [address] Peptide BNP [phone] 1 Because ethnic data is not always [...] 12 HOUR Copy Result to: RIGO BURRELL ([id number]) 7 FASTING 12 HOUR Copy Result to: RIGO BURRELL ([id number]) 8 FASTING 12 HOUR Copy Result to: RIGO BURRELL ([id number]) 9 FASTING 12 HOUR Copy Result to: RIGO BURRELL ([id number]) Procedures Date Code Description Status 01/11/2019 51862 Pace Maker Eval W/Iterative Adjment Dual Lead Completed 01/11/2019 25149 Pace Maker Eval W/Iterative Adjment Dual Lead Completed Medical Devices Description No Information Available Encounters Type Date Location Provider Dx Diagnosis Office Visit 01/11/2019 [facility] Shayna Lloyd, I50.32 Chronic diastolic 11:30a Of [employer] N.P. (congestive) heart failure I49.5 Sick sinus syndrome Z95.0 Presence of cardiac pacemaker I10 Essential (primary) hypertension I48.2 Chronic atrial fibrillation R06.00 Dyspnea, unspecified I71.2 Thoracic aortic aneurysm, without rupture Office Visit 11/10/2018 2:45p Pulmonology And Andi Vigil J44.9 Chronic Sleep Services Of obstructive [employer] pulmonary disease, unspecified G47.33 Obstructive sleep apnea (adult) (pediatric) Assessments Date Code Description Provider 04/21/2019 I49.5 Sick sinus syndrome Rigo Burrell M.D. 04/21/2019 I48.2 Chronic atrial fibrillation Rigo Burrell M.D. 04/21/2019 I71.2 Thoracic aortic aneurysm, without rupture Rigo Burrell M.D. 04/21/2019 J44.9 Chronic obstructive pulmonary disease, Rigo Burrell M.D. unspecified 04/21/2019 I25.10 Coronary atherosclerosis Rigo Burrell M.D. 04/21/2019 R01.1 Systolic murmur Rigo Burrell M.D. 01/11/2019 I49.5 Sick sinus syndrome Ica Pacer Schedule 01/11/2019 Z95.0 Presence of cardiac pacemaker Rigo Burrell M.D. 01/11/2019 I50.32 Chronic diastolic (congestive) heart Shayna SEnrique Lloyd, N.P. failure 01/11/2019 I49.5 Sick sinus syndrome Shayna S. Gabino, N.P. 01/11/2019 Z95.0 Presence of cardiac pacemaker Ica Pacer Schedule 01/11/2019 Z95.0 Presence of cardiac pacemaker Shayna SEnrique Lloyd, N.P. 01/11/2019 I10 Essential (primary) hypertension Shayna SEnrique Lloyd, N.P. 01/11/2019 I48.2 Chronic atrial fibrillation Ica Pacer Schedule 01/11/2019 I48.2 Chronic atrial fibrillation Shayna S. Gabino, N.P. 01/11/2019 R06.00 Dyspnea, unspecified Shayna S. Gabino, N.P. 01/11/2019 I71.2 Thoracic aortic aneurysm, without rupture Shayna Lloyd, N.P. 11/10/2018 J44.9 Chronic obstructive pulmonary disease, Andi Vigil MD unspecified 11/10/2018 G47.33 Obstructive sleep apnea (adult) Andi Vigil MD (pediatric) Plan of Treatment Future Appointment(s):05/09/2019 2:00 pm - [place] [facility] Schedule at [facility]04/21/2019 - Rigo Burrell M.D.I49.5 Sick sinus cdprbrdlH07.2 Chronic atrial fibrillationFollow up:ov 6 mI71.2 Thoracic aortic aneurysm, without sbdnkwqT36.9 Chronic obstructive pulmonary disease, nmzxkagyqjiY83.10 Coronary cmththqcoqcdejdS45.1 Systolic murmurNew Orders:Echocardiogram, Ordered : 04/21/19 Functional Status Description No Information Available Mental Status Description No Information Available Referrals Description No Information Available
--- NOTE | 2019-05-16 01:40 | ED ---
Respiratory - HPI Summary HPI Summary: This patient is a 89 year old M presenting to [facility] accompanied by his son with a chief complaint of coughing since last week. Per son, pt was going on a road trip when they had to turn around due to worsening cough. The patient rates the pain 0/10 in severity. Symptoms aggravated by nothing. Symptoms alleviated by nothing. Patient reports SOB. Patient denies fever. Pt has a pacemaker, heart valve replacement, glaucoma. He is normally not on oxygen - History of Current Complaint Chief Complaint: EDUpperRespComplaint Stated Complaint: COUGH/CONGESTION PER SON Time Seen by Provider: 05/16/19 01:08 Hx Obtained From: Patient, Family/Manager Android - son Onset/Duration: Sudden Onset Initial Severity: Moderate Current Severity: Moderate Pain Intensity: 0 Character: Cough (Nonproductive) Sputum Amount: None Aggravating Factor(s): Nothing Alleviating Factor(s): Nothing Associated Signs and Symptoms: SOB - Allergy/Home Medications Allergies/Adverse Reactions: Allergies Allergy/AdvReac Type Severity Reaction Status Date / Time codeine Allergy Hives/Diff. Verified 02/25/18 10:12 Breathing/I tching Home Medications: Home Medications Beclomethasone Dipropionate [Qnasl] 80 meq BOTH NARES DAILY 05/16/19 [History Confirmed 05/16/19] Flovent Diskus 250 MCG(NF) 250 mcg INH DAILY 05/16/19 [History Confirmed ] Proair Respiclick 90 mcg INH Q4H PRN 05/16/19 [History Confirmed 05/16/19] Torsemide 10 mg PO DAILY 05/16/19 [History Confirmed 05/16/19] PMH/Surg Hx/FS Hx/Imm Hx Previously Healthy: No Endocrine/Hematology History: Denies: Hx Anticoagulant Therapy, Hx Diabetes, Hx Thyroid Disease Cardiovascular History: Reports: Hx Coronary Artery Disease, Hx Hypercholesterolemia, Hx Hypertension, Hx Pacemaker/ICD - 2012, Other Cardiovascular Problems/Disorders - CARDIAC STENT Denies: Hx Angina, Hx Cardiac Arrest, Hx Congestive Heart Failure Respiratory History: Reports: Hx Chronic Obstructive Pulmonary Disease (COPD), Hx Sleep Apnea Denies: Other Respiratory Problems/Disorders GI History: Reports: Hx Gastroesophageal Reflux Disease Denies: Other GI Disorders History: Reports: Hx Benign Prostatic Hyperplasia Denies: Hx Renal Disease Musculoskeletal History: Reports: 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 Denies: Other Musculoskeletal History Sensory History: Reports: Hx Cataracts - ANTIONETTE, Hx Contacts or Glasses, Hx Glaucoma - right eye, Hx Legally Blind - left eye, Hx Hearing Aid - bilateral Opthamlomology History: Reports: Hx Cataracts - ANTIONETTE, Hx Contacts or Glasses, Hx Glaucoma - right eye, Hx Legally Blind - left eye Neurological History: Reports: Other Neuro Impairments/Disorders - vertigo, dizzy spells - Surgical History Surgical History: Yes Surgery Procedure, Year, and Place: ANTION[place] KNEES [place]AC[place] 2004[place] [facility] [place]. [place] [facility] [place] Hx Anesthesia Reactions: No - Immunization History Date of Tetanus Vaccine: Unk Date of Influenza Vaccine: Fall 2014 Infectious Disease History: No Infectious Disease History: Denies: Traveled Outside the in Last 30 Days - Family History Known Family History: Positive: None Family History: Mother with glaucoma. Father with lung CA secondary to smoking - Social History Alcohol Use: None Substance Use Type: Reports: None Smoking Status (MU): Never Smoked Tobacco Review of Systems Negative: Fever Positive: Shortness Of Breath, Cough All Other Systems Reviewed And Are Negative: Yes Physical Exam - Summary Physical Exam Summary: Constitutional: Chronically ill appearing, Alert. (-) Distressed Skin: Warm, Dry HENT: Normocephalic; Atraumatic. bilateral conjunctival injection with drainage Eyes: Conjunctiva normal Neck: Musculoskeletal ROM normal neck. (-) JVD, (-) Stridor, (-) Nuchal rigidity Cardio: Rhythm regular, irregularly irregular heart rate, Heart sounds normal; Intact distal pulses; Radial pulses are 2+ and symmetric. (-) Murmur Pulmonary/Chest wall: Effort normal. Left lower lobe bronchi (-) Respiratory distress, (-) Wheezes, (-) Rales Abd: Soft, (-) tenderness, (-) Distension, (-) Guarding, (-) Rebound Musculoskeletal: (-) Edema Lymph: (-) Cervical adenopathy Neuro: Alert, Oriented x3 Psych: Mood and affect Normal Triage Information Reviewed: Yes Vital Signs On Initial Exam: Initial Vitals Temp Pulse Resp BP Pulse Ox 98.9 F 91 20 147/108 93 05/15/19 23:57 05/15/19 23:57 05/15/19 23:57 05/15/19 23:57 05/15/19 23:57 Vital Signs Reviewed: Yes Diagnostics - Vital Signs Vital Signs Temp Pulse Resp BP Pulse Ox 05/15/19 23:57 98.9 F 91 20 147/108 93 - Laboratory Result Diagrams: 05/16/19 01:26 05/16/19 01:26 Lab Statement: Any lab studies that have been ordered have been reviewed, and results considered in the medical decision making process. - Radiology CXR Radiology Interpretation Completed By: ED Physician Summary of Radiographic Findings: Impression: left lower lobe opacity - EKG 1117 Cardiac Rate: NL - 88 BPM EKG Rhythm: Atrial Fibrillation Summary of EKG Findings: EKG at 1117 shows 88 BPM, a-fib with incomplete LBBB, no change from 02/11/19 Disposition - Course Course Of Treatment: 89 y/o male w hx recent URI p/w worsening cough, fatigue, VERMA. Shortness of breath ddx: Most likely PNA will treat w levaquin. Also consider: COPD exacerbation/asthma - no wheezing on exam. Low suspicion. PTX - breath sounds equal, no risk factors for PTX, CXR w/o e/o PTX. ACS - no CP, no EKG changes, initial trop not elevated. Low suspicion. CHF - BNP 200's, no pulm edema on XR. - Diagnoses Provider Diagnoses: Pneumonia - Physician Notifications Discussed Care Of Patient With: Kisha Rudolph Time Discussed With Above Provider: 02:46 Instructed by Provider To: Other - Dr. Rudolph agrees to admit pt. Discharge ED - Sign-Out/Discharge Documenting (check all that apply): Patient Departure - admit Patient Received Moderate/Deep Sedation with Procedure: No - Discharge Plan Condition: Stable Disposition: ADMITTED TO [facility] Referrals: Abner Romero MD [Primary Care Provider] - - Billing Disposition and Condition Condition: STABLE Disposition: Admitted to [facility] - Attestation Statements Document Initiated by Scribe: Yes Documenting Scribe: Jon Herndon Provider For Whom Scribe is Documenting (Include Credential): Dr. Alecia Paz MD Scribe Attestation: Jon Beltran, scribed for Dr. Alecia Paz MD on 05/16/19 at 0717. Scribe Documentation Reviewed: Yes Provider Attestation: The documentation as recorded by the scribe, Jon Herndon accurately reflects the service I personally performed and the decisions made by me, Dr. Alecia Paz MD Status of Scribe Document: Viewed
[2019-05-16 01:44] LABS: Hematocrit 44 % (42-52); Hemoglobin 14.4 g/dL (14.0-18.0); Mean Corpuscular HGB Conc 33 g/dL (31-36); Mean Corpuscular Hemoglobin 33 pg (27-31); Mean Corpuscular Volume 102 fL (80-94); Mean Platelet Volume 8.5 fL (7.4-10.4); Platelet Count 159 10^3/uL (150-450); Red Blood Count 4.33 10^6 /uL (4.18-5.48); Red Cell Distribution Width 14 % (10-15); White Blood Count 11.5 10^3/uL (3.5-10.8)
[2019-05-16 02:00] LABS: Albumin 4.1 g/dL (3.2-5.2); Albumin/Globulin Ratio 1.4 (1-3); BUN/Creatinine Ratio 17.8 (8-20); Calcium 9.3 mg/dL (8.6-10.3); EGFR African American 84.4 (>60); EGFR Non-African American 69.7 (>60); Globulin 2.9 g/dL (2-4); Potassium 3.9 mmol/L (3.5-5.0); Total Bilirubin 1.4 mg/dL (0.2-1.0)
[2019-05-16 02:28] LABS: Troponin I 0.03 ng/mL (<0.04)
[2019-05-16] MEDS ORDERED: Levofloxacin 750 MG IVPREMIX(* 750 MG/150 ML BAG IVPB ONE (02:37)
[2019-05-16 02:43] LABS: ABS Eosinophils 0.1 10^3/ul (0-0.6); ABS Lymphocytes 1.1 10^3/ul (1.0-4.8); ABS Monocytes 1.8 10^3/ul (0-0.8); ABS Neutrophils 8.4 10^3/ul (1.5-7.7); Eosinophil % 1.2 %; Lymphocyte % 9.8 %
[2019-05-16 03:21] LABS: C Reactive Protein 201.86 mg/L (<8.01)
[2019-05-16 04:55] LABS: Digoxin 1.8 ng/ml (0.8-2.0)
[2019-05-16] MEDS ORDERED: Al Hydrox/Mg Hydrox/Simet LIQ* 30 ML UDC PO PRN (04:56)
[2019-05-16] MEDS ORDERED: Acetaminophen TAB* 325 MG PO PRN (04:56)
[2019-05-16] MEDS ORDERED: DOXYcycline IV* 100 MG in NS 0.9% 250 ML* 250 ML IVPB SCH (05:00)
[2019-05-16] MEDS: NS 0.9% 1000 ML** 1,000 ML IV SCH ×2 (07:10→10:26)
[2019-05-16 07:16] LABS: Urine Appearance Clear; Urine Bacteria Absent (Absent); Urine Bilirubin Negative (Negative); Urine Blood 1+ (Negative); Urine Color Yellow; Urine Glucose Negative (Negative); Urine Ketones Trace (Negative); Urine Nitrite Negative (Negative); Urine Protein 2+(100 mg/dL) (Negative); Urine Red Blood Cell 3+(>10/hpf) (Absent); Urine Urobilinogen Negative (Negative); Urine White Blood Cell Trace(0-5/hpf) (Absent)
[2019-05-16 07:23] LABS: Influenza A Molecular NEGATIVE (Negative); Influenza B Molecular NEGATIVE (Negative)
[2019-05-16 07:58] LABS: Indirect Bilirubin 1.1 mg/dL (0.3-1.0)
[2019-05-16] MEDS: Atorvastatin* 10 MG TAB PO SCH (10:26)
[2019-05-16] MEDS: Senna TAB 8.6 mg* TAB PO SCH ×2 (10:26→21:54)
[2019-05-16] MEDS: Aspirin EC TAB* 81 MG TAB.EC PO SCH (10:26)
[2019-05-16] MEDS: Diltiazem CD CAP* 120 MG PO SCH ×2 (10:28→21:54)
[2019-05-16] MEDS: Docusate CAP* 100 MG PO SCH ×2 (10:28→21:54)
[2019-05-16] MEDS ORDERED: OFLOXACIN 0.3% BOTH EYES SCH (10:30)
--- NOTE | 2019-05-16 10:32 | HP ---
CC: Dr. Garrett; Dr. Burrell * HISTORY AND PHYSICAL: DATE OF ADMISSION: 05/16/19 PRIMARY CARE PROVIDER: Dr. Garrett. LUMBER SALVAGER: Dr. Burrlel. CHIEF COMPLAINT: Shortness of breath, cough, and discharge from eyes. HISTORY OF PRESENT ILLNESS: Adam Ayala is an 89-year-old male with a history of atrial fibrillation as well as status post aortic valve replacement in 2014, who presented to the hospital complaining of cough and eye discharge. The patient stated that he was started on antibiotics for a total of 5 days with azithromycin sometime earlier last week. He finished it mid week and then subsequently felt better and decided to go with his son for a 24-day trip to [place]. He stated that they drove for approximately 24 hours, during which time the patient started getting sick again with shortness of breath, cough, and eye discharge. His son asked him if he wanted to go to the hospital in [place] or "at home." At this point, the patient decided to go back home to [place] to go to the hospital and they drove nonstop back from [place] to our emergency department to be evaluated. Here the patient complains of shortness of breath, dry cough, and eye discharge. Denies any chest pain. He is going to be admitted with the diagnosis of bilateral pneumonia and conjunctivitis. PAST MEDICAL HISTORY: 1. History of chronic atrial fibrillation, on anticoagulation with Pradaxa and treatment with digoxin. 2. History of tracheomalacia diagnosed in 2018. 3. History of aortic aneurysm at 5.5 cm of ascending segment of aorta. 4. History of bioprosthetic aortic valve in 2014. 5. History of coronary artery disease, status post stent placement in the past. 6. History of hypertension. 7. Gastroesophageal reflux disease. 8. History of recurrent syncope, over 20 episodes of syncope in the past. 9. History of obstructive sleep apnea. 10. Dyslipidemia. 11. History of diastolic heart dysfunction with recently noted echocardiogram showing the EF of 55% to 60%, moderate aortic valve regurgitation, and moderate mitral regurgitation. 12. History of glaucoma, bilateral eyes. 13. History of SVT. 14. History of pacemaker placement. 15. History of sphincterectomy of the rectum in 2000. 16. Hernia repair in 1996 and 2000. 17. Knee replacement bilaterally. 18. History of circumcision in 2018. 19. History of tonsillectomy and adenoidectomy. CURRENT MEDICATIONS: Include: 1. Lipitor 10 mg alternating with 5 mg every other day. 2. Torsemide 10 mg daily 2 days a week. 3. Diltiazem CD 120 mg twice a day. 4. Pradaxa 150 mg b.i.d. 5. Digoxin 125 mcg on Mondays, Wednesdays, and Fridays and 125 mcg twice a day the remaining days of the week. 6. PreserVision 1 tablet twice a day. 7. Vitamin B12 1000 mcg a day. 8. Protonix 40 mg daily. 9. Aspirin 81 mg daily. 10. Albuterol inhaler on a p.r.n. basis. 11. Bilberry 1 capsule daily. 12. Cosopt 1 drop to right eye twice a day. 13. Meclizine on a p.r.n. basis. 14. Flovent Diskus 250 mcg 1 inhalation daily. 15. Systane eye drops as needed. ALLERGIES: CODEINE. FAMILY HISTORY: Mother lived into her 90s and the patient is not sure what she of. Father of lung cancer at the age of 73. SOCIAL HISTORY: The patient is a , lives alone, but his son lives next door. His son is the surrogate. He denies any alcohol, tobacco, or drug use. REVIEW OF SYSTEMS: Positive cough, shortness of breath, and eye discharge for the past 24 hours. Positive for cough and shortness of breath several days ago that resolved with azithromycin treatment and now recurred. Negative for fevers. Positive for chronic bilateral leg edema. All the remaining 12 systems were reviewed with the patient and were otherwise negative. PHYSICAL EXAMINATION GENERAL: The patient is a very pleasant 89-year-old male who is a rather poor historian. He is in no acute distress. He is alert and oriented x3. VITAL SIGNS: Blood pressure of 144/86, heart rate of 91 and irregular, respiratory rate 23, O2 saturation 97% on 2 L of oxygen nasal cannula, temperature of 98.9. HEENT: Head atraumatic, normocephalic. Eyes with conjunctival discharge that is purulent bilaterally noted. Pupils are equal and reactive to light bilaterally. Oropharynx clear. Mucosa dry. NECK: Supple. No JVD, no bruits bilaterally. RESPIRATORY: Rhonchi bilateral basis. CARDIOVASCULAR: Irregularly irregular rhythm. No murmur. ABDOMEN: Protuberant, soft, nontender. Bowel sounds present in all 4 quadrants. EXTREMITIES: There is +1 pitting edema bilaterally. Pulses +2 bilaterally. There is no clubbing or cyanosis. NEUROLOGIC: Speech clear. Cranial nerves II through XII grossly intact. Motor strength is 5/5 bilaterally. LABORATORY DATA: White blood cell count 11.5, hemoglobin 14.4, hematocrit 44, MCV of 102, and platelets of 159. Sodium of 136, potassium 3.9, chloride 102, carbon dioxide 27, BUN 18, creatinine 1.101. Liver function test showed total bilirubin of 1.4, otherwise unremarkable. Troponin of 0.03. Brain natriuretic peptide was 243 and C- reactive protein was 201. The patient's portable chest x-ray reviewed by myself prior to the official radiologist report shows bibasilar infiltrates. Digoxin level was 1.8. The patient's EKG showed atrial fibrillation with a heart rate of 100 beats per minute with incomplete left bundle branch blocks and multiple LDH criteria. Comparing to EKG from January of 2019, at that point the patient's heart rate was partially paced and he had PVCs. Otherwise, abnormalities were the same. ASSESSMENT AND PLAN: 1. The patient is presenting with sepsis due to pneumonia. Due to the presence of conjunctivitis, the differential is likely atypical pneumonia, possibility of Mycoplasma pneumoniae has to be entertained. The patient was already treated with azithromycin. He received Levaquin in the emergency department. At this point, I will place the patient on doxycycline to cover atypicals as well as mycoplasma if possible and ceftriaxone. Mycoplasma antibodies as well as urine legionella antibodies and Streptococcus pneumonia antibodies are going to be obtained. Due to history of congestive heart failure , the patient is going to be placed on gentle intravenous hydration. 2. Diastolic congestive heart failure. The patient is on torsemide twice a week. At this point, I will place him on no diuretics, check daily weights, and gently hydrate. 3. The patient has a history of chronic atrial fibrillation. Currently is rate controlled. Digoxin level is acceptable. We will continue digoxin at this point as well as diltiazem. 4. DVT prophylaxis: The patient is anticoagulated with Pradaxa and that is going to be continued. 5. The patient's code status is full. His surrogate is his son Armando Ayala. 6. In regards to his dyslipidemia, Lipitor is going to be continued at outpatient doses. 7. For conjunctivitis, we will place the patient on ofloxacin eye drops. TIME SPENT: Approximately 65 minutes were spent on the admission of this patient, more than half that time was spent [id number] with the patient during the interview and physical exam. [id number]/[facility] #: [id number] MTDD
[2019-05-16] MEDS: cefTRIAXone(*) 1 GM in NS 0.9% 50 ML* 50 ML IVPB SCH (11:09)
[2019-05-16] MEDS: CMCS:Dabigatran CAP(NF) 150 MG CAP PO SCH ×2 (11:14→21:53)
[2019-05-16] MEDS: Cyanocobalamin TAB* 500 MCG PO SCH (11:56)
[2019-05-16] MEDS: Digoxin TAB* 0.125 MG PO SCH ×2 (11:56→22:02)
[2019-05-16] MEDS: Ciprofloxacin 0.3% OPTH.SOL* BTL BOTH EYES SCH ×6 (11:56→21:53)
[2019-05-16] MEDS: guaiFENesin ER TAB 600 MG PO SCH ×2 (13:07→21:54)
--- NOTE | 2019-05-16 14:41 | PN ---
Hospitalist Progress Note Date of Service: 05/16/19 Subjective: Patient has complaints of shortness of breath, cough, and discharge from eyes. Objective: Vitals: BP-147/82, respiration-15, pulse-93, O2- 100% on 2 liters of oxygen. GENERAL: The patient is a very pleasant 89-year-old male. He is in no acute distress. He is alert and oriented x3. HEENT: Head atraumatic, normocephalic. Eyes with conjunctival discharge that is purulent bilaterally noted. Pupils are equal and reactive to light bilaterally. Oropharynx clear. Mucosa dry. NECK: Supple. No JVD, no bruits bilaterally. RESPIRATORY: Rhonchi bilateral basis. CARDIOVASCULAR: Irregularly irregular rhythm. No murmur. ABDOMEN: Protuberant, soft, nontender. Bowel sounds present in all 4 quadrants. EXTREMITIES: There is +1 pitting edema bilaterally. There is no clubbing or cyanosis. NEUROLOGIC: Speech clear. Cranial nerves II through XII grossly intact. Motor strength is 5/5 bilaterally. Labs: WBC- 11.5 H MCV: 102 H MCH: 33 H Abs neuts: 8.4 H Abs monos: 1.8 H Glucose: 102 H Total bili: 1.4 H CRP: 201.86 H BNP: 243 H Urine protein: 2 + 100 mg/dl Urine ketones: Trace A Urine blood: 1 + A Urine rbc: 3 +(>10/hpf) A Urine Ascorbic Acid: A Xray: Patchy airspace of the lung bases bilaterally, COPD, cardiomegaly. EKG: Afib, V-rate 78-115 irreg, ventricular premature complex. QRS>110, LVH Assessment: Adam Ayala is an 89-year-old male with a history of atrial fibrillation as well as status post aortic valve replacement in 2014, who presented to the hospital complaining of cough and eye discharge. The patient stated that he was started on antibiotics for a total of 5 days with azithromycin sometime earlier last week. He finished it mid-week and then subsequently felt better and decided to go with his son for a 24-day trip to [place]. He stated that they drove for approximately 24 hours, during which time the patient started getting sick again with shortness of breath, cough, and eye discharge. His son asked him if he wanted to go to the hospital in [place] or "at home." At this point, the patient decided to go back home to [place] to go to the hospital and they drove nonstop back from [place] to our emergency department to be evaluated. Plan: 1. Pneumonia. Due to the presence of conjunctivitis, the differential is likely atypical pneumonia; possibility of Mycoplasma pneumoniae has to be entertained. Pulmonary embolism is on the differential but can be ruled out due to a Wells score of 0. The patient was already treated with azithromycin 250 mg PO QAM. He received Levaquin 750 mg IV in the emergency department. The patient on doxycycline 100 mgs to cover atypicals as well as mycoplasma if possible and ceftriaxone 50 mls @ 100 mls/hr. Mycoplasma antibodies as well as urine legionella antibodies and Streptococcus pneumonia antibodies are going to be obtained. Due to history of congestive heart failure, the patient is going to be placed on gentle intravenous hydration. 2. Diastolic congestive heart failure. The patient is was on torsemide twice a week. At this point, I will place him on no diuretics, check daily weights, and gently hydrate. 3. The patient has a history of chronic atrial fibrillation. Currently is rate controlled. Digoxin level is acceptable. We will continue digoxin 0.125 mg PO at this point as well as diltiazem 120 mg PO BID. 4. DVT prophylaxis: The patient is anticoagulated with Pradaxa 150 mg PO BID and that is going to be continued. 5. The patient's code status is full. His surrogate is his son Armando Ayala. 6. In regards to his dyslipidemia, Lipitor 5 mg PO every other day and 10 mg PO every other day is going to be continued at outpatient doses.
--- NOTE | 2019-05-16 15:03 | PN ---
Subjective Date of Service: 05/16/19 Interval History: Pt complained of productive cough and running nose. History revisited, patient is a poor historian. He denied recent pneumonia history with abx treatment. He claimed this is the second pneumonia during his lifetime. Afebrile overnight. Objective Active Medications: Acetaminophen (Tylenol Tab*) 650 mg PO Q4H PRN PRN Reason: PAIN-MILD/TEMP >/= 100.4 Al Hydrox/Mg Hydrox/Simethicone (Maalox Plus*) 30 ml PO Q6H PRN PRN Reason: INDIGESTION Aspirin (Aspirin Ec Tab*) 81 mg PO QAM [facility] Last Admin: 05/16/19 10:26 Dose: 81 mg Atorvastatin Calcium (Lipitor*) 5 mg PO EVERY OTHER DAY [facility] Last Admin: 05/16/19 10:26 Dose: 5 mg Atorvastatin Calcium (Lipitor*) 10 mg PO EVERY OTHER DAY [facility] Ciprofloxacin HCl (Cipro 0.3% Opth*) 1 drop BOTH EYES Q2H [facility] Stop: 05/18/19 11:29 Last Admin: 05/16/19 13:07 Dose: 1 drop Ciprofloxacin HCl (Cipro 0.3% Opth*) 1 drop BOTH EYES [id number] AWAKE [facility] Stop: 05/23/19 13:59 Cyanocobalamin (Vitamin B12 Tab*) 1,000 mcg PO DAILY [facility] Last Admin: 05/16/19 11:56 Dose: 1,000 mcg Dabigatran (Pradaxa Cap(Nf)) 150 mg PO BID [facility] Last Admin: 05/16/19 11:14 Dose: 150 mg Digoxin (Lanoxin Tab*) 0.125 mg PO MoWeFr@0900,2100 [facility] Last Admin: 05/16/19 11:56 Dose: 0.125 mg Digoxin (Lanoxin Tab*) 0.125 mg PO SuTuThSa@0900 [facility] Diltiazem HCl (Cardizem Cd Cap*) 120 mg PO BID [facility] Last Admin: 05/16/19 10:28 Dose: 120 mg Docusate Sodium (Colace Cap*) 100 mg PO BID [facility] Last Admin: 05/16/19 10:28 Dose: 100 mg Guaifenesin (Mucinex*) 600 mg PO BID [facility] Last Admin: 05/16/19 13:07 Dose: 600 mg Doxycycline Hyclate 100 mg/ (Sodium Chloride) 250 mls @ 250 mls/hr IVPB Q12H [facility] Last Admin: 05/16/19 07:34 Dose: 250 mls/hr Ceftriaxone Sodium 1 gm/ (Sodium Chloride) 50 mls @ 100 mls/hr IVPB Q24H [facility] Last Admin: 05/16/19 11:09 Dose: 100 mls/hr Sodium Chloride (Ns 0.9% 1000 Ml) 1,000 mls @ 75 mls/hr IV PER RATE [facility] Last Admin: 05/16/19 10:26 Dose: 75 mls/hr Senna (Senokot 8.6 Mg Tab*) 1 tab PO BID [facility] Last Admin: 05/16/19 10:26 Dose: 1 tab Vital Signs - 8 hr 05/16/19 05/16/19 05/16/19 07:00 07:22 07:52 Temperature Pulse Rate 93 91 95 Respiratory 15 23 24 Rate Blood Pressure 115/67 126/68 (mmHg) O2 Sat by Pulse 94 91 87 Oximetry 05/16/19 05/16/19 05/16/19 08:00 08:21 08:52 Temperature Pulse Rate 84 85 92 Respiratory 21 17 16 Rate Blood Pressure 147/94 140/92 (mmHg) O2 Sat by Pulse 89 88 96 Oximetry 05/16/19 05/16/19 05/16/19 09:00 09:52 10:05 Temperature 98.9 F Pulse Rate 94 78 Respiratory 16 22 22 Rate Blood Pressure 133/112 133/112 (mmHg) O2 Sat by Pulse 95 99 Oximetry 05/16/19 05/16/19 05/16/19 10:10 10:30 11:15 Temperature 97.7 F 97.7 F 98.5 F Pulse Rate 97 97 85 Respiratory 20 20 16 Rate Blood Pressure 143/74 143/74 144/76 (mmHg) O2 Sat by Pulse 98 98 100 Oximetry 05/16/19 11:56 Temperature Pulse Rate 85 Respiratory Rate Blood Pressure (mmHg) O2 Sat by Pulse Oximetry Oxygen Devices in Use Now: Nasal Cannula Exam: Gen: comfortable, not in distress with InO2 HEENT: bilateral conjunctivitis with purulent discharges. Lungs: bibasal crackles Cardiac: regular rhythm, no murmur Abdomen: distended, soft, non tender. Skin: no rashes seen Extremities: No cyanosis. trace bilateral edema. Result Diagrams: 05/16/19 01:26 05/16/19 01:26 Assess/Plan/Problems-Billing Assessment: Mr. 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 - Patient Problems (1) Community acquired pneumonia Current Visit: Yes Status: Acute Code(s): J18.9 - PNEUMONIA, UNSPECIFIED ORGANISM SNOMED Code(s): 945481470 Comment: complicated with elevated Emiliano influenza neg, mycoplasma pending, strep pneumo, legionella pending start iV ceftriaxone and doxycycline (2) Conjunctivitis Current Visit: Yes Status: Acute Code(s): H10.9 - UNSPECIFIED CONJUNCTIVITIS SNOMED Code(s): 8491010 Comment: conjunctivitis with purulent discharge start on cipro eye drop (3) Atrial fibrillation Current Visit: No Status: Acute Code(s): I48.91 - UNSPECIFIED ATRIAL FIBRILLATION SNOMED Code(s): 76674847 Comment: Good rate control on his usual meds. (4) DVT (deep venous thrombosis) Current Visit: Yes Status: Acute Code(s): I82.409 - ACUTE EMBOLISM AND THOMBOS UNSP DEEP VN UNSP LOWER EXTREMITY SNOMED Code(s): 403482176 Comment: on anticoagulant Status and Disposition: Inpatient Medicine Attestation Documenting Resident: Ирина Haq Supervising Physician: Varinder Camargo Attending/Supervising Physician Comment: Agree with plan as outline din today's note by Dr. Haq unless indicated here. Suspect PNA with atypical myscoplasma on differential now on doxycycline and ctx Hyperbilirubinemia - suspect in setting of above, supports mycoplasma SOB - PNA, PE on differential with low Wells score but given long driving trip would obtain CTA chest if PNA failes to improve, also COPD on differential and will consider steroids if fails to improve without them Attestation: This service has been performed in part by a resident under the direction of a teaching physician.I, aVrinder Camargo, performed the service, or was physically present during the critical, or duong portions of the service, furnished by the resident. I participated in the management of the patient.
[2019-05-16] MEDS: DOXYcycline IV* 100 MG in NS 0.9% 250 ML* 250 ML IVPB SCH (19:36)
[2019-05-17] MEDS: Ciprofloxacin 0.3% OPTH.SOL* BTL BOTH EYES SCH ×12 (00:45→22:03)
[2019-05-17] MEDS: NS 0.9% 1000 ML** 1,000 ML IV SCH (04:10)
[2019-05-17 06:59] LABS: ABS Eosinophils 0.4 10^3/ul (0-0.6); ABS Lymphocytes 1.8 10^3/ul (1.0-4.8); ABS Monocytes 1.3 10^3/ul (0-0.8); ABS Neutrophils 4.1 10^3/ul (1.5-7.7); Eosinophil % 5.9 %; Hematocrit 39 % (42-52); Hemoglobin 13.3 g/dL (14.0-18.0); Lymphocyte % 23.3 %; Mean Corpuscular HGB Conc 34 g/dL (31-36); Mean Corpuscular Hemoglobin 35 pg (27-31); Mean Corpuscular Volume 100 fL (80-94); Mean Platelet Volume 8.3 fL (7.4-10.4); Platelet Count 156 10^3/uL (150-450); Red Blood Count 3.87 10^6 /uL (4.18-5.48); Red Cell Distribution Width 14 % (10-15); White Blood Count 7.6 10^3/uL (3.5-10.8)
[2019-05-17 07:17] LABS: BUN/Creatinine Ratio 17.7 (8-20); C Reactive Protein 203.57 mg/L (<8.01); Calcium 8.7 mg/dL (8.6-10.3); EGFR African American 89.4 (>60); EGFR Non-African American 73.9 (>60); Indirect Bilirubin 0.6 mg/dL (0.3-1.0); Potassium 3.9 mmol/L (3.5-5.0); Total Bilirubin 0.8 mg/dL (0.2-1.0)
--- NOTE | 2019-05-17 08:16 | PN ---
Hospitalist Progress Note Date of Service: 05/17/19 Subjective: Patient has complaints of shortness of breath, cough, and discharge from eyes. Objective: Vitals: BP-136/74, respiration-18, pulse-87, O2- 99% on 2 liters of oxygen. GENERAL: The patient is a very pleasant 89-year-old male. He is in no acute distress. He is alert and oriented x3. HEENT: Head atraumatic, normocephalic. Eyes with conjunctival discharge that is purulent bilaterally noted. Pupils are equal and reactive to light bilaterally. Oropharynx clear. Mucosa dry. NECK: Supple. No JVD, no bruits bilaterally. RESPIRATORY: Rhonchi bilateral basis. CARDIOVASCULAR: Irregularly irregular rhythm. No murmur. ABDOMEN: Protuberant, soft, nontender. Bowel sounds present in all 4 quadrants. EXTREMITIES: There is +1 pitting edema bilaterally. There is no clubbing or cyanosis. NEUROLOGIC: Speech clear. Cranial nerves II through XII grossly intact. Motor strength is 5/5 bilaterally. Labs: Rbc: 3.87 L Hgb: 13.3 L Hct: 39 L MCV: 100 H MCH: 35 H Abs monos: 1.3 H Direct bili: 0.2 H CRP: 203.57 H Xray (05/16/19): Patchy airspace of the lung bases bilaterally, COPD, cardiomegaly. EKG (05/16/19): Afib, V-rate 78-115 irreg, ventricular premature complex. QRS >110, LVH Microbio: negative legionella and negative S.pneumo Assessment: Adam Ayala is an 89-year-old male with a history of atrial fibrillation as well as status post aortic valve replacement in 2014, who presented to the hospital complaining of cough and eye discharge. The patient stated that he was started on antibiotics for a total of 5 days with azithromycin sometime earlier last week. He finished it mid-week and then subsequently felt better and decided to go with his son for a 24-day trip to [place]. He stated that they drove for approximately 24 hours, during which time the patient started getting sick again with shortness of breath, cough, and eye discharge. His son asked him if he wanted to go to the hospital in [place] or "at home." At this point, the patient decided to go back home to [place] to go to the hospital and they drove nonstop back from [place] to our emergency department to be evaluated. Plan: 1. Pneumonia. Due to the presence of conjunctivitis, the differential is likely atypical pneumonia; possibility of Mycoplasma pneumoniae has to be entertained. Pulmonary embolism is on the differential but can be ruled out due to a Wells score of 0. The patient was already treated with azithromycin 250 mg PO QAM. He received Levaquin 750 mg IV in the emergency department. The patient is on doxycycline 100 mgs in sodium chloride, 250 mls/hr IVPB Q12H to cover atypicals as well as mycoplasma if possible and ceftriaxone 50 mls @ 100 mls/hr IVPB Q24H. Mycoplasma antibodies as well as urine legionella antibodies and Streptococcus pneumonia antibodies came back negative. Due to history of congestive heart failure, the patient is going to be placed on gentle intravenous hydration. 2. Conjunctivitis: Ciprofloxacin Hcl 1 gm in sodium chloride, 50 mls @100 mls/ hr IVPB Q24H. 3. Atrial fibrillation: Good rate control on his usual meds. Aspirin 81 mg PO QAM, digoxin level is acceptable. We will continue digoxin 0.125 mg PO at this point as well as diltiazem 120 mg PO BID. 4. DVT prophylaxis: The patient is anticoagulated with Pradaxa 150 mg PO BID and that is going to be continued. 5. In regards to his dyslipidemia, Lipitor 5 mg PO every other day and 10 mg PO every other day is going to be continued at outpatient doses.
[2019-05-17] MEDS: DOXYcycline IV* 100 MG in NS 0.9% 250 ML* 250 ML IVPB SCH ×2 (08:37→20:39)
[2019-05-17] MEDS: guaiFENesin ER TAB 600 MG PO SCH ×2 (08:38→20:40)
[2019-05-17] MEDS: Docusate CAP* 100 MG PO SCH ×2 (08:38→20:41)
[2019-05-17] MEDS: Diltiazem CD CAP* 120 MG PO SCH ×2 (08:38→22:03)
[2019-05-17] MEDS: Senna TAB 8.6 mg* TAB PO SCH ×2 (08:38→20:40)
[2019-05-17] MEDS: Cyanocobalamin TAB* 500 MCG PO SCH (08:38)
[2019-05-17] MEDS: Aspirin EC TAB* 81 MG TAB.EC PO SCH (08:39)
[2019-05-17] MEDS: CMCS:Dabigatran CAP(NF) 150 MG CAP PO SCH ×2 (08:40→20:41)
[2019-05-17] MEDS ORDERED: Atorvastatin* 10 MG TAB PO SCH (09:00)
[2019-05-17] MEDS ORDERED: Digoxin TAB* 0.125 MG PO SCH (09:00)
[2019-05-17] MEDS: cefTRIAXone(*) 1 GM in NS 0.9% 50 ML* 50 ML IVPB SCH (10:19)
--- NOTE | 2019-05-17 15:22 | PN ---
Subjective Date of Service: 05/17/19 Interval History: Patient improved in terms of respiratory status, no oxygen required. No fever, chills overnight. Productive cough still persists. Objective Active Medications: Acetaminophen (Tylenol Tab*) 650 mg PO Q4H PRN PRN Reason: PAIN-MILD/TEMP >/= 100.4 Al Hydrox/Mg Hydrox/Simethicone (Maalox Plus*) 30 ml PO Q6H PRN PRN Reason: INDIGESTION Aspirin (Aspirin Ec Tab*) 81 mg PO QAM [facility] Last Admin: 05/17/19 08:39 Dose: 81 mg Atorvastatin Calcium (Lipitor*) 5 mg PO EVERY OTHER DAY [facility] Last Admin: 05/16/19 10:26 Dose: 5 mg Atorvastatin Calcium (Lipitor*) 10 mg PO EVERY OTHER DAY [facility] Last Admin: 05/17/19 08:41 Dose: 10 mg Ciprofloxacin HCl (Cipro 0.3% Opth*) 1 drop BOTH EYES Q2H [facility] Stop: 05/18/19 11:29 Last Admin: 05/17/19 14:56 Dose: Not Given Ciprofloxacin HCl (Cipro 0.3% Opth*) 1 drop BOTH EYES [id number] AWAKE [facility] Stop: 05/23/19 13:59 Cyanocobalamin (Vitamin B12 Tab*) 1,000 mcg PO DAILY [facility] Last Admin: 05/17/19 08:38 Dose: 1,000 mcg Dabigatran (Pradaxa Cap(Nf)) 150 mg PO BID [facility] Last Admin: 05/17/19 08:40 Dose: 150 mg Digoxin (Lanoxin Tab*) 0.125 mg PO MoWeFr@0900,2100 [facility] Last Admin: 05/16/19 22:02 Dose: 0.125 mg Digoxin (Lanoxin Tab*) 0.125 mg PO SuTuThSa@0900 [facility] Last Admin: 05/17/19 08:40 Dose: 0.125 mg Diltiazem HCl (Cardizem Cd Cap*) 120 mg PO BID [facility] Last Admin: 05/17/19 08:38 Dose: 120 mg Docusate Sodium (Colace Cap*) 100 mg PO BID [facility] Last Admin: 05/17/19 08:38 Dose: 100 mg Guaifenesin (Mucinex*) 600 mg PO BID [facility] Last Admin: 05/17/19 08:38 Dose: 600 mg Ceftriaxone Sodium 1 gm/ (Sodium Chloride) 50 mls @ 100 mls/hr IVPB Q24H [facility] Last Admin: 05/17/19 10:19 Dose: 100 mls/hr Sodium Chloride (Ns 0.9% 1000 Ml) 1,000 mls @ 75 mls/hr IV PER RATE [facility] Last Admin: 05/17/19 04:10 Dose: 75 mls/hr Doxycycline Hyclate 100 mg/ (Sodium Chloride) 250 mls @ 250 mls/hr IVPB Q12H [facility] Last Admin: 05/17/19 08:37 Dose: 250 mls/hr Senna (Senokot 8.6 Mg Tab*) 1 tab PO BID [facility] Last Admin: 05/17/19 08:38 Dose: 1 tab Vital Signs - 8 hr 05/17/19 05/17/19 05/17/19 08:00 08:40 11:07 Temperature 97.4 F Pulse Rate 88 74 Respiratory 16 20 Rate Blood Pressure 135/71 (mmHg) O2 Sat by Pulse 100 Oximetry Oxygen Devices in Use Now: Nasal Cannula Exam: Gen: comfortable, not in distress with InO2 HEENT: bilateral conjunctivitis with purulent discharges-improved Lungs: bilateral basal rhonchis. Cardiac: regular rhythm, no murmur Abdomen: distended, soft, non tender. Skin: no rashes seen Extremities: No cyanosis. trace bilateral edema. Result Diagrams: 05/17/19 06:31 05/17/19 06:31 Assess/Plan/Problems-Billing Assessment: Mr. 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 - Patient Problems (1) Community acquired pneumonia Current Visit: Yes Status: Acute Code(s): J18.9 - PNEUMONIA, UNSPECIFIED ORGANISM SNOMED Code(s): 981706820 Comment: complicated with elevated Sergio influenza neg, mycoplasma pending, strep pneumo, legionella neg start iV ceftriaxone and doxycycline incentive spirometry (2) Conjunctivitis Current Visit: Yes Status: Acute Code(s): H10.9 - UNSPECIFIED CONJUNCTIVITIS SNOMED Code(s): 3525214 Comment: conjunctivitis with purulent discharge start on cipro eye drop (3) Atrial fibrillation Current Visit: No Status: Acute Code(s): I48.91 - UNSPECIFIED ATRIAL FIBRILLATION SNOMED Code(s): 61444934 Comment: Good rate control on his usual meds. (4) DVT (deep venous thrombosis) Current Visit: Yes Status: Acute Code(s): I82.409 - ACUTE EMBOLISM AND THOMBOS UNSP DEEP VN UNSP LOWER EXTREMITY SNOMED Code(s): 024992628 Comment: on anticoagulant Status and Disposition: Inpatient Medicine Attestation Documenting Resident: Severino Supervising Physician: Raman Attending/Supervising Physician Comment: Agree with plan as outlined by Dr. Haq in note from today unless indicated here. 89M a/w SOB 2/2 suspected PNA (mycoplasm suspected) improving on CTX and azithromycin. Dicontinued IVF now c/w abx with plan for discharge, potentially tomorrow Attestation: This service has been performed in part by a resident under the direction of a teaching physician.Raman Beltran, performed the service, or was physically present during the critical, or duong portions of the service, furnished by the resident. I participated in the management of the patient.
[2019-05-18] MEDS: Ciprofloxacin 0.3% OPTH.SOL* BTL BOTH EYES SCH ×6 (01:05→09:46)
--- NOTE | 2019-05-18 07:27 | PN ---
Hospitalist Progress Note Date of Service: 05/18/19 Subjective: Patient has feels like he improved a lot when it comes to his shortness of breath, cough, and discharge from eyes. Today he is feeling much better is still on room air. No fever or chills overnight, he did have some diarrhea, but this morning it has resolved. Objective: Vitals: BP-132/75, respiration-16, pulse-75, O2- 97% on room air. GENERAL: The patient is a very pleasant 89-year-old male. He is in no acute distress. He is alert and oriented x3. HEENT: Head atraumatic, normocephalic. Eyes with conjunctival discharge that is purulent bilaterally noted. Pupils are equal and reactive to light bilaterally. Oropharynx clear. Mucosa dry. NECK: Supple. No JVD, no bruits bilaterally. RESPIRATORY: Rhonchi bilateral basis. CARDIOVASCULAR: Irregularly irregular rhythm. No murmur. ABDOMEN: Protuberant, soft, nontender. Bowel sounds present in all 4 quadrants. EXTREMITIES: There is no pitting edema bilaterally. There is no clubbing or cyanosis. NEUROLOGIC: Speech clear. Cranial nerves II through XII grossly intact. Motor strength is 5/5 bilaterally. Xray (05/16/19): Patchy airspace of the lung bases bilaterally, COPD, cardiomegaly. EKG (05/16/19): Afib, V-rate 78-115 irreg, ventricular premature complex. QRS >110, LVH Microbio: negative legionella and negative S.pneumo Assessment: Adam Ayala is an 89-year-old male with a history of atrial fibrillation as well as status post aortic valve replacement in 2014, who presented to the hospital complaining of cough and eye discharge. The patient stated that he was started on antibiotics for a total of 5 days with azithromycin sometime earlier last week. He finished it mid-week and then subsequently felt better and decided to go with his son for a 24-day trip to [place]. He stated that they drove for approximately 24 hours, during which time the patient started getting sick again with shortness of breath, cough, and eye discharge. His son asked him if he wanted to go to the hospital in [place] or "at home." At this point, the patient decided to go back home to [place] to go to the hospital and they drove nonstop back from [place] to our emergency department to be evaluated. Plan: 1. Pneumonia. Due to the presence of conjunctivitis, the differential is likely atypical pneumonia; possibility of Mycoplasma pneumoniae has to be entertained. Pulmonary embolism is on the differential but can be ruled out due to a Wells score of 0. COPD exacerbation is on the differential as well, but patients symptoms are improving with antibiotics so we will continue this. The patient was already treated with azithromycin 250 mg PO QAM. He received Levaquin 750 mg IV in the emergency department. The patient is on doxycycline 100 mgs in sodium chloride, 250 mls/hr IVPB Q12H to cover atypicals as well as mycoplasma if possible and ceftriaxone 50 mls @ 100 mls/hr IVPB Q24H. Mycoplasma antibodies as well as urine legionella antibodies and Streptococcus pneumonia antibodies came back negative. Mycoplasma culture is still pending. 2. Conjunctivitis: Ciprofloxacin Hcl 1 gm in sodium chloride, 50 mls @100 mls/ hr IVPB Q24H. 3. Atrial fibrillation: Good rate control on his usual meds. Aspirin 81 mg PO QAM, digoxin level is acceptable. We will continue digoxin 0.125 mg PO at this point as well as diltiazem 120 mg PO BID. Also on Lipitor 5 mg PO every other day and 10 mg PO every other day. 4. DVT prophylaxis: The patient is anticoagulated with Pradaxa 150 mg PO BID and that is going to be continued. 5. In regards to his dyslipidemia, Lipitor 5 mg PO every other day and 10 mg PO every other day is going to be continued at outpatient doses. 6. Glaucoma: Son wants to know when he can start the dorzolamide hcl/timolol maleat eye drops again.
[2019-05-18] MEDS: DOXYcycline IV* 100 MG in NS 0.9% 250 ML* 250 ML IVPB SCH (08:07)
[2019-05-18] MEDS: Diltiazem CD CAP* 120 MG PO SCH (08:08)
[2019-05-18] MEDS: Atorvastatin* 10 MG TAB PO SCH (08:10)
[2019-05-18] MEDS: Cyanocobalamin TAB* 500 MCG PO SCH (08:10)
[2019-05-18] MEDS: Aspirin EC TAB* 81 MG TAB.EC PO SCH (08:11)
[2019-05-18] MEDS: CMCS:Dabigatran CAP(NF) 150 MG CAP PO SCH (08:11)
[2019-05-18] MEDS: guaiFENesin ER TAB 600 MG PO SCH (08:22)
[2019-05-18] MEDS: Senna TAB 8.6 mg* TAB PO SCH (08:22)
[2019-05-18] MEDS: Docusate CAP* 100 MG PO SCH (08:23)
[2019-05-18] MEDS: Digoxin TAB* 0.125 MG PO SCH (09:46)
[2019-05-18] MEDS ORDERED: CMC:Dorzolamide/Timolol OPTH (NF) 10 ML BOT BOTH EYES SCH (10:00)
[2019-05-18] MEDS: cefTRIAXone(*) 1 GM in NS 0.9% 50 ML* 50 ML IVPB SCH (11:13)
[2019-05-18 11:15] VITALS: BP 122/66
[2019-05-18] MEDS ORDERED: Ciprofloxacin 0.3% OPTH.SOL* BTL BOTH EYES SCH (14:00)
[2019-05-18 15:22] LABS: Mycoplasma pneumoniae IgG Ab Positive (Negative); Mycoplasma pneumoniae IgM Ab Negative (Negative)
--- NOTE | 2019-05-18 23:26 | DS ---
CC: Dr. Garrett; Dr. Burrell * DISCHARGE SUMMARY: DATE OF ADMISSION: 05/16/19 DATE OF DISCHARGE: 05/18/19 PRIMARY CARE PROVIDER: Dr. Garrett. DISPOSITION ON DISCHARGE: Home. CONDITION ON DISCHARGE: Good. PRIMARY DIAGNOSES: 1. Pneumonia. 2. Conjunctivitis. SECONDARY DIAGNOSES: Include: 1. Chronic atrial fibrillation. 2. History of aortic aneurysm. 3. History of bioprosthetic aortic valve. 4. Coronary artery disease. 5. Hypertension. 6. Gastroesophageal reflux disease. 7. History of recurrent syncope. 8. Obstructive sleep apnea. 9. Dyslipidemia. 10. Supraventricular tachycardia. MEDICATIONS ON DISCHARGE: 1. Torsemide 10 mg daily. 2. Flovent 250 mcg inhaled daily. 3. Beclomethasone 80 mcg to both nares daily. 4. ProAir 90 mcg every 4 hours as needed. 5. Vitamin B12 1000 mcg daily. 6. Dabigatran 150 mg twice daily. 7. Bilberry fruit extract. 8. Atorvastatin 15 mg daily. 9. Aspirin 81 mg in the morning. 10. Cosopt eye drops one drop right eye twice daily. 11. Digoxin 0.25 mg in the morning and 0.125 mg in the evening. 12. Diltiazem 120 mg twice daily. 13. Pantoprazole 40 mg in the morning. 14. Meclizine 25 mg 3 times a day as needed. 15. Doxycycline 100 mg twice daily for 4 additional days. 16. Augmentin 875 mg twice daily for 4 additional days. HISTORY OF PRESENT ILLNESS AND HOSPITAL COURSE: This is an 89-year-old gentleman who presented to the hospital with shortness of breath and cough. He had no fevers. He had a leukocytosis of 11.5 on presentation, found with a left -sided pneumonia. In the setting of symptoms and chest x-ray findings, clinical syndrome of pneumonia was diagnosed, unclear viral versus bacterial, however, treated with antibiotics and improved quite rapidly, back to room air on day of discharge, he felt back to his baseline. The patient was given eye drops, ciprofloxacin initially for his left eye discharge, it improved. He was also treated empirically with IV antibiotics for his pneumonia. On the day of discharge the patient felt back to his baseline. By the time of discharge, his lungs were clear. There were no complications during the course of the hospital stay. Only medication changes with the addition of antibiotics for 4 additional days. At the time of discharge, mycoplasma antibody was pending. At followup please; evaluate for continuous stability after discharge. No specific labs or vitals that needed follow up other than mycoplasma. Reasons to return to the hospital including, but not limited to, recurrent or worsening symptoms, chest pain, shortness of breath, nausea, vomiting, lightheadedness, loss of consciousness, fever, inability to obtain or tolerate medications were discussed with the patient and his son. They acknowledged understanding. TIME SPENT: Greater than 45 minutes was spent on the discharge of this patient , greater than half was spent [id number] with the patient. [id number] #: [id number] CONNIED
== END 2019-05-18 15:45 | disposition home or self-care (01) | DRG 871 ==
LOC: ED 23:38 → MEDTELE 05-16 04:56
PROVIDERS: ADMIT Internal Medicine; ATTEND Internal Medicine
DX: A41.9 Sepsis, unspecified organism (principal); J18.9 Pneumonia, unspecified organism; I48.20 Chronic atrial fibrillation, unspecified; I50.32 Chronic diastolic (congestive) heart failure; I25.10 Atherosclerotic heart disease of native coronary artery without angina pectoris; E78.00 Pure hypercholesterolemia, unspecified; J44.9 Chronic obstructive pulmonary disease, unspecified; K21.9 Gastro-esophageal reflux disease without esophagitis; N40.0 Benign prostatic hyperplasia without lower urinary tract symptoms; Z96.653 Presence of artificial knee joint, bilateral; H40.9 Unspecified glaucoma; H26.9 Unspecified cataract; H91.93 Unspecified hearing loss, bilateral; H54.62 Unqualified visual loss, left eye, normal vision right eye; I44.7 Left bundle-branch block, unspecified; G47.33 Obstructive sleep apnea (adult) (pediatric); E78.5 Hyperlipidemia, unspecified; E80.6 Other disorders of bilirubin metabolism; I34.0 Nonrheumatic mitral (valve) insufficiency; I71.2 Thoracic aortic aneurysm, without rupture; H10.9 Unspecified conjunctivitis; I11.0 Hypertensive heart disease with heart failure; Z80.1 Family history of malignant neoplasm of trachea, bronchus and lung; Z88.6 Allergy status to analgesic agent; Z95.5 Presence of coronary angioplasty implant and graft; Z95.0 Presence of cardiac pacemaker; Z98.41 Cataract extraction status, right eye; Z97.4 Presence of external hearing-aid; Z95.2 Presence of prosthetic heart valve; Z81.2 Family history of tobacco abuse and dependence; Z79.82 Long term (current) use of aspirin
CPT/HCPCS: 36415; 71046; 80048; 80053; 80162; 81003; 81015; 82247; 82248; 83880; 84484; 85025; 86140; 86738; 87086; 87899; 93005; 99284; A9270-GY; G8978-GP-CI; G8979-GP-CI; G8980-GP-CI; J0696